=== PATIENT | male | born 1990 | race African-American/Black ===

== ENCOUNTER 2020-10-06 06:24 | Emergency (ER) | payer MEDICAID, OTHER ==
--- OUTSIDE RECORDS SUMMARY | 2020-10-06 06:50 | EXTERNAL MEDICAL SUMMARY RPT | Continuity of Care Document ---
:1990 Demographics Phone Unavailable Preferred Language Unknown Marital Status Unknown Holiness Affiliation Unknown Race Unknown Ethnic Group Unknown Author Organization [facility] Address [address] [id number] Phone Social History date description facility [phone]
[2020-10-06] MEDS ORDERED: METOPROLOL TARTRATE 50 MG TABLET PO STA (07:25)
[2020-10-06] MEDS ORDERED: ASPIRIN CHEW 81 MG TABLET PO STA (07:30)
--- NOTE | 2020-10-06 07:30 | ED Physician Documentation ---
PD HPI CHEST PAIN - Stated complaint Stated Complaint: CHEST PRESSURE/SOA - Chief complaint Chief Complaint: Cardiac - History obtained from History obtained from: Patient - Additional information Additional information: Patient comes emergency department chief complaint of episodes of chest pressure on and off for the last several months. Patient states that he first noticed it after sexual intercourse in June. He states that for about 10 minutes afterward, and he felt like he still need to catch his breath, and he had a sense of pressure substernally for about 20 minutes. He noticed that his heart seemed to be pounding afterward, as well. Patient states that since then he has had a number of other episodes of just the pressure, though he does notice that he seems to be winded after intercourse for up to 10 minutes on a fairly regular basis. Patient states he has not noticed any decrease in exercise tolerance in any other way, however. He states that he does generally work out regularly at the gym, though he has not been doing it very much this month so far. He also takes his dog for a walk for about a mile on a daily basis, and this does not cause him to be short of breath, either. Patient also does not notice any chest discomfort at this time. Patient states that the chest pressure will last anywhere from a few seconds to several minutes. He states that often, he can take a deep breath and it does help with the pressure felt better. Patient denies any swelling in his legs. No pain or enlargement of either of his calves. No fever chills or cough. The patient states that he was found to have high blood pressure measurements when he was in the [employer] some years ago, but they never started him on any medications. The [facility], but is in the process of getting set up with a primary care physician. He is not sure what his blood pressure normally runs. Patient denies any personal or family history of coronary artery disease at a young age or of DVT. He smokes tobacco approximately once a month and vapes in between, though he states he has not vape in the last few days. He drinks alcohol recreationally on the weekends. Patient states he eats mostly chicken as far as meat, and overall tries to live a healthy lifestyle. No other complaints at this time. Review of Systems Ten Systems: 10 systems reviewed and negative Constitutional: reports: Reviewed and negative Eyes: reports: Reviewed and negative Ears: reports: Reviewed and negative Nose: reports: Reviewed and negative Throat: reports: Reviewed and negative Cardiac: reports: Chest pain / pressure Respiratory: reports: Dyspnea GI: reports: Reviewed and negative : reports: Reviewed and negative Skin: reports: Reviewed and negative Musculoskeletal: reports: Reviewed and negative Neurologic: reports: Reviewed and negative Psychiatric: reports: Reviewed and negative Endocrine: reports: Reviewed and negative Immunocompromised: reports: Reviewed and negative PD PAST MEDICAL HISTORY - Past Medical History Past Medical History: No - Past Surgical History Past Surgical History: No - Present Medications Home Medications: Ambulatory Orders Medication Instructions Recorded Confirmed Metoprolol Tartrate [Lopressor] 12.5 mg PO BID #60 tablet 10/06/20 - Allergies Allergies/Adverse Reactions: Allergies Allergy/AdvReac Type Severity Reaction Status Date / Time No Known Drug Allergies Allergy Verified 10/06/20 06:42 - Social History Does the pt smoke?: No Smoking Status: Never smoker Does the pt drink ETOH?: Yes Does the pt have substance abuse?: No - Immunizations Immunizations are current?: No - POLST Patient has POLST: No PD ED PE NORMAL - Vitals Vital signs reviewed: Yes - General General: Alert and oriented X 3, No acute distress - HEENT HEENT: Atraumatic, PERRL, EOMI, Moist mucous membranes - Neck Neck: Supple, no meningeal sign - Cardiac Cardiac: RRR, No murmur, Strong equal pulses - Respiratory Respiratory: No respiratory distress, Clear bilaterally - Abdomen Abdomen: Soft, Non tender, Non distended - Derm Derm: Normal color, Warm and dry, No rash - Extremities Extremities: No deformity, No edema, No calf tenderness / cord - Neuro Neuro: Alert and oriented X 3, 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, Normal speech, Other (Grossly intact.) - Psych Psych: Normal mood, Normal affect Results - Vitals Vitals: Vital Signs - 24 hr 10/06/20 10/06/20 06:42 06:47 Temperature 36.7 C 36.7 C Heart Rate 79 79 Respiratory 15 15 Rate Blood Pressure 154/98 H 154/98 H O2 Saturation 100 100 Oxygen O2 Source Room air - EKG (time done) 0628 Rate: Rate (enter#) (63) Rhythm: NSR [place]: Normal Intervals: Normal DC QRS: Normal Ischemia: Normal ST segments, Non specific changes Compare to prior EKG: Old EKG unavailable Computer interpretation: Agree with computer - Labs Labs: Laboratory Tests 10/06/20 10/06/20 10/06/20 07:58 07:58 07:58 WBC 5.9 RBC 4.64 L Hgb 14.1 Hct 42.4 MCV 91.4 MCH 30.4 MCHC 33.3 RDW 12.9 Plt Count 269 MPV 9.7 Neut # (Auto) 2.0 Lymph # (Auto) 3.0 [place] # (Auto) 0.6 Eos # (Auto) 0.3 Baso # (Auto) 0.1 Absolute Nucleated RBC 0.00 Nucleated RBC % 0.0 Sodium 139 Potassium 3.8 Chloride 101 Carbon Dioxide 27 Anion Gap 11.0 BUN 19 Creatinine 1.0 Estimated GFR (MDRD) 107 Glucose 95 Calcium 9.2 Total Bilirubin 0.8 AST 24 ALT 17 Alkaline Phosphatase 50 Troponin I High Sens 6.3 Total Protein 7.6 Albumin 4.4 Globulin 3.2 Albumin/Globulin Ratio 1.4 Lipase 33 - Rads (name of study) CXR Radiology: Final report received, EMP read indepedently, See rad report (neg) PD MEDICAL DECISION MAKING - ED course Complexity details: reviewed results, re-evaluated patient, considered differential, d/w patient ED course: The patient was worked up with labs, EKG, and chest x-ray, all of which were unremarkable. He was without chest pain in the emergency department, But his blood pressure was found to be elevated. This started out quite significantly elevated, and did slowly come down in the emergency department, but patient systolic blood pressures remained around a minimum of 140. The patient had possibly had high blood pressure before, and I discussed with him that it is really important to keep better control of this. I started him on metoprolol here in the emergency department, at a low dose. I discussed with him that probably the best plan, since he does not have an actual primary care physician, but has access to primary care through the [facility], is to start him on a low dose of an antihypertensive and have him follow-up as soon as possible with primary care to determine a good long-term plan for his blood pressure. He has been given a dose of metoprolol today to this and. I have also discussed with him that it may be good to discuss having both Holter monitoring and a stress test done to further evaluate his symptoms. Overall, he is low risk because of his age, but the dyspnea after intercourse is concerning. However, he has not been having this with other forms of exercise, so it is unclear what is causing this finding. Patient at this point in time is deemed stable for discharge home. We have discussed the usual indications for return. Departure - Departure Disposition: 01 Home, Self Care Clinical Impression: Chest pain Qualifiers: Chest pain type: unspecified Qualified Code(s): R07.9 - Chest pain, unspecified Hypertension Qualifiers: Hypertension type: essential hypertension Qualified Code(s): I10 - Essential (primary) hypertension Condition: Stable Instructions: ED Chest Pain Atypical Unkn Cause, ED Hypertension New Begin Tx Prescriptions: Metoprolol Tartrate [Lopressor] 12.5 mg PO BID #60 tablet Comments: Your labs, chest x-ray, and EKG all look good. There is no evidence of an emergent cause of your symptoms today. As we have discussed, you are young and because of this very low risk for coronary artery disease, the condition that leads to heart attack. However, given that you are having some shortness of breath in certain situations, as well as the chest pressure, plus the ongoing elevated blood pressure, it is important for you to follow-up with your primary doctor to discuss better control of your blood pressure, as well as the possibility of having a stress test done. We have started you on a blood press ure medicine today, which she should take every day as directed. If you are able, please try to check your blood pressure on a fairly regular basis, at least several times a week. Is most helpful if you keep a record of your blood pressure readings So that when your doctor sees you, they can get a sense of how well the medicine is controlling your blood pressure, and what you were running on a daily basis. Please continue to try to optimize lifestyle factors, including getting cardiovascular exercise at least several times a week, eating at least 2 servings of fruits and/or vegetables at each meal, getting to bed early, and leaving off use of alcohol and cigarettes/vaping. It should be safe for you to travel to [place] tomorrow. However, if it anytime you develop severe chest pain, especially is if it is associated with shortness of breath, facial sweating, lightheadedness, and/or nausea, please seek medical attention immediately.
[2020-10-06 08:00] LABS: BASOPHILS # (AUTO) 0.1 10^3/uL (0.0-0.1); BASOPHILS % (AUTO) 0.8 %; EOSINOPHILS # (AUTO) 0.3 10^3/uL (0.0-0.7); EOSINOPHILS % (AUTO) 5.4 %; HCT - HEMATOCRIT 42.4 % (42.0-52.0); HGB - HEMOGLOBIN 14.1 g/dL (14.0-18.0); LYMPHOCYTES % (AUTO) 50.8 %; MEAN CORPUSCULAR HEMOGLOBIN 30.4 pg (27.0-31.0); MEAN CORPUSCULAR HGB CONC 33.3 g/dL (32.0-36.0); MEAN CORPUSCULAR VOLUME 91.4 fL (80.0-94.0); MEAN PLATELET VOLUME 9.7 fL (7.4-11.4); MONOCYTES # (AUTO) 0.6 10^3/uL (0.0-1.0); MONOCYTES % (AUTO) 9.3 %; NEUTROPHILS % (AUTO) 33.7 %; PLT - PLATELET COUNT 269 10^3/uL (130-450); RED BLOOD COUNT 4.64 10^6/uL (4.70-6.10); RED CELL DISTRIBUTION WIDTH 12.9 % (12.0-15.0); WHITE BLOOD COUNT 5.9 x10^3/uL (4.8-10.8)
[2020-10-06 08:16] LABS: ALBUMIN 4.4 g/dL (3.2-5.5); ALBUMIN/GLOBULIN RATIO 1.4 (1.0-2.2); BILIRUBIN,TOTAL 0.8 mg/dL (0.2-1.0); CALCIUM 9.2 mg/dL (8.5-10.3); POTASSIUM 3.8 mmol/L (3.5-5.0); TOTAL PROTEIN 7.6 g/dL (6.7-8.2)
--- NOTE | 2020-10-06 08:23 | XRAY Report ---
PROCEDURE: Chest 1 View X-Ray INDICATIONS: chest pain TECHNIQUE: One view of the chest was acquired. COMPARISON: None FINDINGS: Surgical changes and devices: None. Lungs and pleura: No pleural effusions or pneumothorax. Lungs are clear. Mediastinum: Mediastinal contours appear normal. Heart size is normal. Bones and chest wall: No suspicious bony lesions. Overlying soft tissues appear unremarkable. IMPRESSION: No acute disease. Reviewed by: Keo Goldberg MD on 10/06/2020 8:22 AM PDT Approved by: Keo Goldberg MD on 10/06/2020 8:22 AM PDT Station ID: [id number]
[2020-10-06 09:25] VITALS: BP 139/104
== END 2020-10-06 09:00 | disposition home or self-care (01) ==
LOC: ED 06:24
DX: R07.89 Other chest pain (principal); I10 Essential (primary) hypertension; F17.290 Nicotine dependence, other tobacco product, uncomplicated
CPT/HCPCS: 36415; 71045; 80053; 83690; 84484; 85025; 85379; 93005; 99284; A9270

== ENCOUNTER 2021-11-01 20:41 | Emergency (ER) | payer OTHER ==
--- NOTE | 2021-11-01 21:21 | ED Physician Documentation ---
History of Present Illness - Stated complaint Stated Complaint: HEADACHE - Chief complaint Chief Complaint: Cardiac - History obtained from History obtained from: Patient - Additonal information Additional information: Patient is a 31-year-old male with a history of hypertension presenting for evaluation of a left-sided headache that has been present for 3-1/2 weeks. Patient hasNoted that the headache is worse when he first wakes up. 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 It is a throbbing pain. It does improve with ibuprofen or Tylenol but then returns. He reports he has had a headache every day for the last 3-1/2 weeks. He denies any associated nausea, blurred vision, weakness, chest pain or difficulty breathing.There is no change in the headache that prompted today's evaluation other than the duration of How long he has experienced it.He does report a history of elevated blood pressures while he was in the [employer] but was not previously started on any medications. [facility] and the plan was for him to keep a log of his blood pressure readings and they are to schedule a phone call in the next 1 to 2 weeks to review them. He is not currently taking any medications for his blood pressure.He denies any trauma or injury. He denies exertion at onset of headache. He denies any activity that makes the headache worse. Review of Systems Constitutional: denies: Fever Eyes: denies: Decreased vision, Photophobia Ears: denies: Ear pain Nose: denies: Congestion Throat: denies: Sore throat Cardiac: denies: Chest pain / pressure Respiratory: denies: Dyspnea, Cough GI: denies: Abdominal Pain, Vomiting Skin: denies: Rash Musculoskeletal: denies: Back pain Neurologic: reports: Headache. denies: Syncope, Head injury PD PAST MEDICAL HISTORY - Past Medical History Past Medical History: Yes - Past Surgical History Past Surgical History: No - Present Medications Home Medications: Ambulatory Orders Medication Instructions Recorded Confirmed Metoprolol Tartrate [Lopressor] 12.5 mg PO BID #60 tablet 10/06/20 amLODIPine [Norvasc] 5 mg PO DAILY #30 tablet 11/01/21 - Allergies Allergies/Adverse Reactions: Allergies Allergy/AdvReac Type Severity Reaction Status Date / Time No Known Drug Allergies Allergy Verified 11/01/21 20:50 - Social History Does the pt smoke?: No Smoking Status: Never smoker Does the pt drink ETOH?: Yes Does the pt have substance abuse?: No - Immunizations Immunizations are current?: No - POLST Patient has POLST: No PD ED PE NORMAL - General General: Alert and oriented X 3, No acute distress, Well developed/nourished - HEENT HEENT: Atraumatic, PERRL, EOMI, Moist mucous membranes, Pharynx benign, Other (No tenderness over temporal arteries) - Neck Neck: Supple, no meningeal sign, No bony TTP - Cardiac Cardiac: RRR, No murmur, Strong equal pulses - Respiratory Respiratory: No respiratory distress, Clear bilaterally - Abdomen Abdomen: Normal bowel sounds, Soft, Non tender - Derm Derm: Warm and dry - Extremities Extremities: No edema - Neuro Neuro: Alert and oriented X 3, 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, No motor deficit, No sensory deficit, Normal speech Eye Opening: Spontaneous Motor: Obeys Commands Verbal: Oriented GCS Score: 15 - Psych Psych: Normal mood Results - Vitals Vitals: Vital Signs - 24 hr 11/01/21 11/01/21 11/01/21 20:45 20:50 21:20 Temperature 36.4 C L 36.5 C Heart Rate 70 70 68 Respiratory 17 17 16 Rate Blood Pressure 207/119 H 207/119 H 198/120 H O2 Saturation 100 100 100 11/01/21 11/01/21 11/01/21 21:30 22:00 22:30 Temperature Heart Rate 73 62 64 Respiratory 16 12 12 Rate Blood Pressure 185/113 H 180/100 H 180/110 H O2 Saturation 100 98 98 11/01/21 23:00 Temperature Heart Rate 61 Respiratory 18 Rate Blood Pressure 197/122 H O2 Saturation 100 Oxygen O2 Source Room air - Labs Labs: Laboratory Tests 11/01/21 11/01/21 21:27 22:22 WBC 5.0 RBC 3.81 L Hgb 11.8 L Hct 34.2 L MCV 89.8 MCH 31.0 MCHC 34.5 RDW 14.6 Plt Count 112 L Neut # (Auto) 2.5 Lymph # (Auto) 1.6 [place] # (Auto) 0.6 Eos # (Auto) 0.2 Baso # (Auto) 0.0 Absolute Nucleated RBC 0.00 Nucleated RBC % 0.0 Sodium 138 Potassium 4.0 Chloride 104 Carbon Dioxide 23 Anion Gap 11.0 BUN 27 H Creatinine 1.8 H Estimated GFR (MDRD) 54 L Glucose 90 Calcium 9.3 Total Bilirubin 2.8 H AST 24 ALT 16 Alkaline Phosphatase 44 Total Protein 7.7 Albumin 4.3 Globulin 3.4 Albumin/Globulin Ratio 1.3 PD MEDICAL DECISION MAKING - ED course Complexity details: reviewed results, re-evaluated patient, d/w patient ED course: Patient is a 31-year-old male with headache and hypertension. His neurologic exam is normal.CT was obtained to rule out intracranial bleed and is negative. I do not suspect subarachnoid hemorrhage based on his history and exam. Patient did have improvement in his headache with Toradol and fluids. Labs were reviewed and show a mild BRANDY.Patient's blood pressure remained elevated. He had previously taken medication but is [facility]. I do believe he should be on an antihypertensive and he is agreeable to starting medication tonight. Patient is essentially asymptomatic and does not warrant rapid lowering of his blood pressure tonight. He is aware of need for close follow-up with his primary care doctor for reevaluation of his blood pressure. He is also advised on strict return precautions. Departure - Departure Disposition: Home, Self Care Clinical Impression: Uncontrolled hypertension Headache Qualifiers: Headache type: tension-type Headache chronicity pattern: acute headache Intractability: not intractable Qualified Code(s): G44.209 - Tension-type headache, unspecified, not intractable Condition: Stable Instructions: ED Headache Tension, ED Hypertension New Begin Tx Prescriptions: amLODIPine [Norvasc] 5 mg PO DAILY #30 tablet Comments: Thuan - You were evaluated for a headache and high blood pressure. Your head CT did not show any abnormalities.Your blood test showed that your kidney function has declined since your last check a year ago. This could be from hydration or effects from your high blood pressure. As your blood pressure readings have been consistently elevated Here and it also sounds like they have been in the past, I think we should start you on medication to help. I will start you on amlodipine. I will start you on a low dose and send a prescription to [facility] in [place]. [facility] for a [facility]up appointment to see how you are tolerating this medication and also for recheck of your kidneys. If anytime it seems that your headache has worsened or you develop any new symptoms such as chest pain or trouble breathing please return to the emergency department. Discharge Date/Time: 11/01/21 23:29
[2021-11-01 21:57] LABS: ALBUMIN 4.3 g/dL (3.2-5.5); ALBUMIN/GLOBULIN RATIO 1.3 (1.0-2.2); BILIRUBIN,TOTAL 2.8 mg/dL (0.2-1.0); CALCIUM 9.3 mg/dL (8.5-10.3); CREATININE 1.8 mg/dL (0.6-1.2); TOTAL PROTEIN 7.7 g/dL (6.7-8.2)
[2021-11-01] MEDS ORDERED: KETOROLAC 30 MG/ML VIAL IVP STA (22:08)
[2021-11-01] MEDS ORDERED: SODIUM CHLORIDE 0.9% 1,000 ML IV STA (22:08)
[2021-11-01 22:29] LABS: BASOPHILS % (AUTO) 0.8 %; EOSINOPHILS # (AUTO) 0.2 10^3/uL (0.0-0.7); HCT - HEMATOCRIT 34.2 % (42.0-52.0); HGB - HEMOGLOBIN 11.8 g/dL (14.0-18.0); LYMPHOCYTES # (AUTO) 1.6 10^3/uL (1.5-3.5); LYMPHOCYTES % (AUTO) 31.9 %; MEAN CORPUSCULAR HGB CONC 34.5 g/dL (32.0-36.0); MEAN CORPUSCULAR VOLUME 89.8 fL (80.0-94.0); MONOCYTES # (AUTO) 0.6 10^3/uL (0.0-1.0); MONOCYTES % (AUTO) 12.1 %; NEUTROPHILS # (AUTO) 2.5 10^3/uL (1.5-6.6); NEUTROPHILS % (AUTO) 50.8 %; PLT - PLATELET COUNT 112 10^3/uL (130-450); RED BLOOD COUNT 3.81 10^6/uL (4.70-6.10); RED CELL DISTRIBUTION WIDTH 14.6 % (12.0-15.0)
--- NOTE | 2021-11-01 22:46 | CT Report ---
PROCEDURE: HEAD WO INDICATIONS: headache/HTN TECHNIQUE: Noncontrast 5 mm thick angled axial sections acquired from the foramen magnum to the vertex. For rad iation dose reduction, the following was used: automated exposure control, adjustment of mA and/or k V according to patient size. COMPARISON: None. FINDINGS: Image quality: Excellent. CSF spaces: Basal cisterns are patent. No extra-axial fluid collections. Ventricles are normal in size and shape. Brain: No intracranial hemorrhage, mass, or mass effect. Russo-white matter interface appears preser sha. Skull and face: Calvarium and visualized facial bones are intact, without suspicious lesions. Sinuses: Visualized sinuses and mastoids are clear. IMPRESSION: 1. No acute intracranial abnormality. Reviewed by: Ben Chavez MD on 11/01/2021 10:45 PM PDT Approved by: Ben Chavez MD on 11/01/2021 10:45 PM PDT Station ID: [id number]
[2021-11-01 23:02] VITALS: BP 197/122
[2021-11-01] MEDS ORDERED: amLODIPine 5 MG TABLET PO STA (23:03)
== END 2021-11-01 23:29 | disposition home or self-care (01) ==
LOC: ED 20:41
DX: G44.209 Tension-type headache, unspecified, not intractable (principal); I10 Essential (primary) hypertension
CPT/HCPCS: 36415; 70450; 80053; 85025; 96374; 99284; A9270

== ENCOUNTER 2021-11-06 06:06 | Emergency (ER) | payer OTHER ==
[2021-11-06] MEDS ORDERED: KETOROLAC 30 MG/ML VIAL IM STA (07:59)
--- NOTE | 2021-11-06 08:00 | ED Physician Documentation ---
PD HPI HEADACHE - Stated complaint Stated Complaint: HEADACHE - Chief complaint Chief Complaint: Neuro - History obtained from History obtained from: Patient - History of Present Illness Timing - onset during: Rest Timing - duration: Months Timing - details: Gradual onset, Still present, Waxing and waning Quality: Throbbing Associated symptoms: No: Fever, Stiff neck, Nausea, Vomiting, Weakness, Numbness, Syncope, Seizure, Eye pain, Vision changes Improved by: Rest, Dark room Worsened by: Light, Noise Contributing factors: Hypertension. No: Anticoagulated, Possible carbon monoxide Similar symptoms before: Diagnosis (hypertension) Review of Systems Constitutional: denies: Fever Eyes: denies: Decreased vision, Photophobia Ears: denies: Loss of hearing, Ear pain Nose: denies: Rhinorrhea / runny nose, Congestion Throat: denies: Sore throat Cardiac: denies: Chest pain / pressure, Palpitations Respiratory: denies: Dyspnea, Cough GI: denies: Abdominal Pain, Nausea, Vomiting, Constipation, Diarrhea : denies: Dysuria, Frequency Musculoskeletal: denies: Neck pain, Back pain, Extremity pain Neurologic: reports: Headache. denies: Generalized weakness, Focal weakness, Numbness, Head injury, LOC PD PAST MEDICAL HISTORY - Past Surgical History Past Surgical History: No - Present Medications Home Medications: Ambulatory Orders Medication Instructions Recorded Confirmed amLODIPine [Norvasc] 5 mg PO DAILY #30 tablet 11/01/21 11/06/21 Metoprolol Succinate [Toprol Xl] 50 mg PO DAILY #30 tablet 11/06/21 - Allergies Allergies/Adverse Reactions: Allergies Allergy/AdvReac Type Severity Reaction Status Date / Time No Known Drug Allergies Allergy Verified 11/01/21 20:50 - Social History Does the pt smoke?: No Smoking Status: Never smoker Does the pt drink ETOH?: Yes Does the pt have substance abuse?: No - Immunizations Immunizations are current?: No - POLST Patient has POLST: No PD ED PE NORMAL - Vitals Vital signs reviewed: Yes (marked hypertension systolic and diastolic ) - General General: Alert and oriented X 3, No acute distress, Well developed/nourished - HEENT HEENT: Atraumatic, PERRL, EOMI - Neck Neck: Supple, no meningeal sign, No bony TTP - Cardiac Cardiac: RRR, No murmur - Respiratory Respiratory: No respiratory distress, Clear bilaterally - Abdomen Abdomen: Normal bowel sounds, Soft, Non tender, Non distended, No organomegaly - Back Back: No CVA TTP, No spinal TTP - Derm Derm: Normal color, Warm and dry, No rash - Extremities Extremities: No deformity, No edema - Neuro Neuro: Alert and oriented X 3, 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, No motor deficit, No sensory deficit, Normal speech Eye Opening: Spontaneous Motor: Obeys Commands Verbal: Oriented GCS Score: 15 - Psych Psych: Normal mood, Normal affect Results - Vitals Vitals: Vital Signs - 24 hr 11/06/21 11/06/21 11/06/21 06:10 06:44 07:08 Temperature 36.8 C Heart Rate 69 65 62 Respiratory 20 13 Rate Blood Pressure 214/126 H 190/125 H O2 Saturation 99 100 11/06/21 11/06/21 11/06/21 09:11 11:19 13:16 Temperature 36.5 C Heart Rate 61 68 70 Respiratory 17 14 13 Rate Blood Pressure 174/129 H 167/119 H 166/122 H O2 Saturation 98 100 100 11/06/21 13:20 Temperature Heart Rate 67 Respiratory 18 Rate Blood Pressure 158/106 H O2 Saturation 99 Oxygen O2 Source Room air - Labs Labs: Laboratory Tests 11/06/21 11/06/21 11/06/21 06:47 06:47 06:47 WBC 9.2 RBC 3.89 L Hgb 12.1 L Hct 35.0 L MCV 90.0 MCH 31.1 H MCHC 34.6 RDW 14.5 Plt Count 144 MPV 11.5 H Neut # (Auto) 4.1 Lymph # (Auto) 3.6 H [place] # (Auto) 1.1 H Eos # (Auto) 0.4 Baso # (Auto) 0.1 Absolute Nucleated RBC 0.00 Nucleated RBC % 0.0 Sodium 135 Potassium 3.8 Chloride 99 L Carbon Dioxide 25 Anion Gap 11.0 BUN 34 H Creatinine 2.1 H Estimated GFR (MDRD) 45 L Glucose 97 Calcium 9.6 Total Bilirubin 2.6 H AST 28 ALT 16 Alkaline Phosphatase 45 Troponin I High Sens 23.0 H* Total Protein 8.4 H Albumin 4.6 Globulin 3.8 Albumin/Globulin Ratio 1.2 Lipase 44 Ethyl Alcohol < 5.0 11/06/21 10:20 WBC RBC Hgb Hct MCV MCH MCHC RDW Plt Count MPV Neut # (Auto) Lymph # (Auto) [place] # (Auto) Eos # (Auto) Baso # (Auto) Absolute Nucleated RBC Nucleated RBC % Sodium Potassium Chloride Carbon Dioxide Anion Gap BUN Creatinine Estimated GFR (MDRD) Glucose Calcium Total Bilirubin AST ALT Alkaline Phosphatase Troponin I High Sens 17.0 Total Protein Albumin Globulin Albumin/Globulin Ratio Lipase Ethyl Alcohol PD MEDICAL DECISION MAKING - ED course Complexity details: reviewed old records, reviewed results, re-evaluated patient, considered differential, d/w patient ED course: 31-year-old Thuan Nguyen has a history of hypertension and he has hypertension [id number] today as well as a headache associated. He has enough hypertension that he has had a small nudge in his troponin. He is treated here in the emergency department with oral metoprolol initially when this gives inadequate results he is subsequently administered labetalol with some improvement. We will place the patient on 250 mg of metoprolol succinate daily and have him follow-up with his prior primary he will continue the amlodipine as well. Departure - Departure Disposition: 01 Home, Self Care Clinical Impression: Uncontrolled hypertension Condition: Stable Instructions: ED Hypertension Conf Out Of Control Follow-Up: ESTEE BASILIO ARNP [Primary Care Provider] - Prescriptions: Metoprolol Succinate [Toprol Xl] 50 mg PO DAILY #30 tablet Comments: Thuan, Today your blood pressure is markedly elevated and requires increased treatment. I have E scribed metoprolol succinate 50 mg daily to [facility] in [place]. My recommendation is to obtain this medication and begin it today. Follow-up with your primary for repeat evaluation in the coming week. Forms: Activity restrictions
[2021-11-06] MEDS ORDERED: METOPROLOL TARTRATE 50 MG TABLET PO STA (08:02)
[2021-11-06] MEDS ORDERED: KETOROLAC 15 MG/ML VIAL IVP STA (08:03)
[2021-11-06 08:13] LABS: BASOPHILS # (AUTO) 0.1 10^3/uL (0.0-0.1); BASOPHILS % (AUTO) 0.7 %; EOSINOPHILS # (AUTO) 0.4 10^3/uL (0.0-0.7); EOSINOPHILS % (AUTO) 3.8 %; HGB - HEMOGLOBIN 12.1 g/dL (14.0-18.0); LYMPHOCYTES # (AUTO) 3.6 10^3/uL (1.5-3.5); MEAN CORPUSCULAR HEMOGLOBIN 31.1 pg (27.0-31.0); MEAN CORPUSCULAR HGB CONC 34.6 g/dL (32.0-36.0); MEAN PLATELET VOLUME 11.5 fL (7.4-11.4); MONOCYTES # (AUTO) 1.1 10^3/uL (0.0-1.0); MONOCYTES % (AUTO) 11.6 %; NEUTROPHILS # (AUTO) 4.1 10^3/uL (1.5-6.6); NEUTROPHILS % (AUTO) 44.7 %; PLT - PLATELET COUNT 144 10^3/uL (130-450); RED BLOOD COUNT 3.89 10^6/uL (4.70-6.10); RED CELL DISTRIBUTION WIDTH 14.5 % (12.0-15.0); WHITE BLOOD COUNT 9.2 x10^3/uL (4.8-10.8)
[2021-11-06 09:03] LABS: ALBUMIN 4.6 g/dL (3.2-5.5); ALBUMIN/GLOBULIN RATIO 1.2 (1.0-2.2); ALKALINE PHOSPHATASE 45 IU/L (42-121); ALT ALANINE AMINOTRANSFERASE 16 IU/L (10-60); AST ASPARTATE AMINOTRANSFERASE 28 IU/L (10-42); BILIRUBIN,TOTAL 2.6 mg/dL (0.2-1.0); BUN - BLOOD UREA NITROGEN 34 mg/dL (6-20); CALCIUM 9.6 mg/dL (8.5-10.3); CARBON DIOXIDE - CO2 25 mmol/L (21-32); CHLORIDE 99 mmol/L (101-111); CREATININE 2.1 mg/dL (0.6-1.2); ETOH - ETHANOL < 5.0 mg/dL; GFR - MDRD 45 (>89); GLUCOSE 97 mg/dL (70-100); LIPASE 44 U/L (22-51); POTASSIUM 3.8 mmol/L (3.5-5.0); SODIUM 135 mmol/L (135-145); TOTAL PROTEIN 8.4 g/dL (6.7-8.2)
[2021-11-06] MEDS ORDERED: LABETALOL 20 MG/4 ML SYRINGE IVP STA (12:34)
[2021-11-06 13:20] VITALS: BP 158/106
== END 2021-11-06 14:01 | disposition home or self-care (01) ==
LOC: ED 06:06
DX: I10 Essential (primary) hypertension (principal)
CPT/HCPCS: 36415; 80053; 80320; 83690; 84484; 85025; 93005; 96374; 96375; 99283; 99284; A9270

== ENCOUNTER 2022-02-22 14:28 | Emergency (ER) | payer OTHER ==
[2022-02-22 14:37] VITALS: BP 165/100
--- NOTE | 2022-02-22 15:29 | ED Physician Documentation ---
History of Present Illness - Stated complaint Stated Complaint: PORT BLEEDING - Chief complaint Chief Complaint: General - History obtained from History obtained from: Patient - History of Present Illness Timing: Today Pain level max: 0 Pain level now: 0 - Additonal information Additional information: Patient has a Rain port in the right upper chest. He uses this for dialysis. Is scheduled to be removed next week. He states that today he noticed blood on the dressing. Nothing makes it better or worse. Patient is asymptomatic. No fevers. No chills. No skin changes. Review of Systems Constitutional: denies: Fever, Chills Respiratory: denies: Cough GI: denies: Nausea, Vomiting, Diarrhea Skin: denies: Rash Musculoskeletal: denies: Neck pain, Back pain Neurologic: denies: Headache PD PAST MEDICAL HISTORY - Past Medical History Past Medical History: Yes Cardiovascular: Hypertension - Past Surgical History Past Surgical History: No - Present Medications Home Medications: Ambulatory Orders Medication Instructions Recorded Confirmed amLODIPine [Norvasc] 5 mg PO DAILY #30 tablet 11/01/21 11/06/21 Metoprolol Succinate [Toprol Xl] 50 mg PO DAILY #30 tablet 11/06/21 - Allergies Allergies/Adverse Reactions: Allergies Allergy/AdvReac Type Severity Reaction Status Date / Time No Known Drug Allergies Allergy Verified 02/22/22 14:37 - Social History Does the pt smoke?: No Smoking Status: Never smoker Does the pt drink ETOH?: Yes Does the pt have substance abuse?: No - Immunizations Immunizations are current?: No - POLST Patient has POLST: No PD ED PE NORMAL - Vitals Vital signs reviewed: Yes - General General: Alert and oriented X 3, No acute distress - HEENT HEENT: Moist mucous membranes - Derm Derm: Warm and dry - Neuro Neuro: Alert and oriented X 3 - Psych Psych: Normal mood, Normal affect - Free text exam Free text exam: Port in place in the right upper chest. There is no further bleeding. There is blood in one of the ports. Results - Vitals Vitals: Vital Signs - 24 hr 02/22/22 14:33 Temperature 36.5 C Heart Rate 66 Respiratory 14 Rate Blood Pressure 165/100 H O2 Saturation 97 Oxygen O2 Source Room air PD MEDICAL DECISION MAKING - ED course Complexity details: considered differential, d/w patient ED course: No active bleeding in the emergency department. The port was flushed with heparin flush. The bandages were changed. Patient counseled regarding signs and symptoms for which I believe and urgent re-evaluation would be necessary. Patient with good understanding of and agreement to plan and is comfortable going home at this time This document was made in part using voice recognition software. While efforts are made to proofread this document, sound alike and grammatical errors may occu r. Departure - Departure Disposition: 01 Home, Self Care Clinical Impression: Port-A-Cath in place Condition: Good Instructions: ED PICC Line Care Follow-Up: your,doctor as needed [Other] Comments: Your report was flushed with heparin. Your dressing was changed. Please return if you worsen. Discharge Date/Time: 02/22/22 15:40
== END 2022-02-22 15:40 | disposition home or self-care (01) ==
LOC: ED 14:28
DX: Z48.01 Encounter for change or removal of surgical wound dressing (principal)
CPT/HCPCS: 99281; 99282

== ENCOUNTER 2022-03-19 11:07 | Emergency (ER) | payer OTHER ==
[2022-03-19] MEDS ORDERED: LABETALOL 20 MG/4 ML SYRINGE IVP STA ×2 (11:34→12:10)
[2022-03-19] MEDS ORDERED: SODIUM CHLORIDE 0.9% 1,000 ML IV STA (11:34)
--- NOTE | 2022-03-19 11:38 | ED Physician Documentation ---
History of Present Illness - Stated complaint Stated Complaint: HIGH BP - Chief complaint Chief Complaint: Cardiac - Additonal information Additional information: 32-year-old male presents emergency department for evaluation of nausea, vomiti ng increasing weakness and elevated blood pressures. 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 Patient has been managed by the [facility] seismic prospecting observer helper Dr. Kaminski. He was receiving dialysis from mid November through january. He has also been receiving monoclonal antibody infusions every 2 weeks. His last infusion March 09. Over the last year he has been diagnosed with hypertension and is currently managed on amlodipine 10 mg daily, chlorthalidone 25 mg daily and carvedilol 12.5 mg twice daily. I have been able to review the patient's most recent [facility] labs and it appears that his baseline creatinine is about 5.7 and a hgb of 10.4 Non-smoker. No headache. He does have some mild chest pressure. No leg swelling. continues to make urine adequately. Review of Systems Constitutional: reports: Reviewed and negative Eyes: reports: Reviewed and negative Cardiac: reports: Chest pain / pressure. denies: Palpitations, Pedal edema, Calf pain Respiratory: denies: Dyspnea, Cough, Hemoptysis GI: reports: Nausea, Vomiting. denies: Abdominal Pain : reports: Reviewed and negative Skin: reports: Reviewed and negative Musculoskeletal: reports: Reviewed and negative PD PAST MEDICAL HISTORY - Past Medical History Cardiovascular: Hypertension : Dialysis - Past Surgical History Past Surgical History: No - Present Medications Home Medications: Ambulatory Orders Medication Instructions Recorded Confirmed Chlorthalidone 12.5 mg PO DAILY 03/19/22 03/19/22 amLODIPine [Norvasc] 12.5 mg PO DAILY 03/19/22 03/19/22 carvediloL [Coreg] 12.5 mg PO BID 03/19/22 03/19/22 - Allergies Allergies/Adverse Reactions: Allergies Allergy/AdvReac Type Severity Reaction Status Date / Time No Known Drug Allergies Allergy Verified 02/22/22 14:37 - Social History Does the pt smoke?: No Smoking Status: Never smoker Does the pt drink ETOH?: Yes Does the pt have substance abuse?: No - Immunizations Immunizations are current?: No - POLST Patient has POLST: No PD ED PE NORMAL - General General: Alert and oriented X 3, No acute distress - HEENT HEENT: PERRL - Neck Neck: Supple, no meningeal sign, No adenopathy - Cardiac Cardiac: RRR, No murmur, No gallop - Respiratory Respiratory: No respiratory distress, Clear bilaterally - Abdomen Abdomen: Normal bowel sounds, Soft, Non tender - Back Back: No CVA TTP, No spinal TTP - Derm Derm: Normal color, Warm and dry, No rash - Extremities Extremities: No deformity, No tenderness to palpate, Normal ROM s pain - Neuro Neuro: Alert and oriented X 3, oracle apex developer 2-12 intact Eye Opening: Spontaneous Motor: Obeys Commands Verbal: Oriented GCS Score: 15 Results - Vitals Vitals: Vital Signs - 24 hr 03/19/22 03/19/22 03/19/22 11:16 11:44 12:09 Temperature 36.9 C Heart Rate 67 73 64 Respiratory 18 15 12 Rate Blood Pressure 237/126 H 225/130 H 199/131 H O2 Saturation 100 96 100 03/19/22 03/19/22 03/19/22 12:30 13:30 14:00 Temperature Heart Rate 70 69 74 Respiratory 26 H 17 17 Rate Blood Pressure 203/122 H 168/109 H 141/98 H O2 Saturation 100 100 94 03/19/22 03/19/22 03/19/22 14:30 15:00 15:30 Temperature Heart Rate 75 69 80 Respiratory 16 20 18 Rate Blood Pressure 165/108 H 181/123 H 168/114 H O2 Saturation 99 100 100 03/19/22 16:00 Temperature Heart Rate 79 Respiratory 12 Rate Blood Pressure 173/87 H O2 Saturation 99 Oxygen O2 Source Room air - EKG (time done) 1126 Rate: Rate (enter#) (66) Rhythm: NSR Edwards: Normal Intervals: Normal NV QRS: Normal Ischemia: Non specific changes Compare to prior EKG: Old EKG unavailable Computer interpretation: Agree with computer - Labs Labs: Laboratory Tests 03/19/22 03/19/22 03/19/22 11:42 11:42 11:42 WBC 5.5 RBC 3.49 L Hgb 10.6 L Hct 31.9 L MCV 91.4 MCH 30.4 MCHC 33.2 RDW 16.2 H Plt Count 115 L MPV 10.3 Neut # (Auto) 3.3 Lymph # (Auto) 1.4 L [place] # (Auto) 0.6 Eos # (Auto) 0.2 Baso # (Auto) 0.0 Absolute Nucleated RBC 0.00 Nucleated RBC % 0.0 Sodium 138 Potassium 4.2 Chloride 104 Carbon Dioxide 21 Anion Gap 13.0 BUN 69 H Creatinine 10.1 H* Estimated GFR (MDRD) 7 L Glucose 90 Calcium 9.8 Total Bilirubin 2.8 H AST 25 ALT 15 Alkaline Phosphatase 56 Lactate Dehydrogenase Troponin I High Sens 82.0 H* Total Protein 7.7 Albumin 4.3 Globulin 3.4 Albumin/Globulin Ratio 1.3 Lipase 30 Urine Color Urine Clarity Urine pH Ur Specific [place] Urine Protein Urine Glucose (UA) Urine Ketones Urine Occult Blood Urine Nitrite Urine Bilirubin Urine Urobilinogen Ur Leukocyte Esterase Urine RBC Urine WBC Ur Squamous Epith Cells Urine Bacteria Urine Casts Ur Microscopic Review Urine Culture Comments SARS-CoV-2 (PCR) 03/19/22 03/19/22 03/19/22 11:42 12:48 13:23 WBC RBC Hgb Hct MCV MCH MCHC RDW Plt Count MPV Neut # (Auto) Lymph # (Auto) [place] # (Auto) Eos # (Auto) Baso # (Auto) Absolute Nucleated RBC Nucleated RBC % Sodium Potassium Chloride Carbon Dioxide Anion Gap BUN Creatinine Estimated GFR (MDRD) Glucose Calcium Total Bilirubin AST ALT Alkaline Phosphatase Lactate Dehydrogenase 517 H Troponin I High Sens Total Protein Albumin Globulin Albumin/Globulin Ratio Lipase Urine Color YELLOW Urine Clarity CLEAR Urine pH 6.0 Ur Specific [place] 1.025 Urine Protein >=300 H Urine Glucose (UA) NEGATIVE Urine Ketones TRACE Urine Occult Blood LARGE H Urine Nitrite NEGATIVE Urine Bilirubin NEGATIVE Urine Urobilinogen 0.2 (NORMAL) Ur Leukocyte Esterase NEGATIVE Urine RBC 0-5 Urine WBC 0-3 Ur Squamous Epith Cells RARE Squamous Urine Bacteria Few Urine Casts 0-2 Course Granular Ur Microscopic Review INDICATED Urine Culture Comments NOT INDICATED SARS-CoV-2 (PCR) NOT DETECTED - Rads (name of study) cxr Radiology: Final report received (No acute cardiopulmonary pathology) PD MEDICAL DECISION MAKING - ED course Complexity details: reviewed results, re-evaluated patient, considered differential, d/w patient, d/w diet consultant (Gordy) ED course: 32-year-old male presents emergency department for evaluation of elevated blood pressures, generalized weakness nausea and vomiting. 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 He also receives monoclonal antibody infusions every 2 weeks. He is followed closely by [facility] nephrology Dr. Kaminski On presentation to the emergency department the patient is alert and well- appearing. However his initial systolic blood pressures are approximately 240/130. He is denying any chest pain or shortness of air. There is no hypoxia. Initially the patient was given 2 doses of labetalol without therapeutic relief of the hypertension and a nicardipine infusion was initiated. Our goal systolic blood pressure is approximately 180. CBC reveals a mild anemia though essentially unchanged from the [facility]'s most recent labs. Unfortunately he does have worsening renal function with a BUN of 70 and a creatinine of 10. Given the lack of nephrology and dialysis services at [facility] that he would not be able to be admitted here therefore [facility] 1245: I have discussed this case with Dr. Kaminski she agrees with the initiation of the nicardipine infusion. She is both the patient's seismic prospecting observer helper as well as the ICU attending at the [facility] today therefore she is going to attempt to make an ICU bed available for him at the [facility] in [place]. 1400: Patient has been accepted to [facility] officially. Accepting physician Dr. Kaminski. [facility] is arranging for [facility] transport. Appropriate COBRA paperwork completed. We continue to titrate the nicardipine drip for goal systolic blood pressure of approximately 180. - Critical Care Time(min): 30 Time Includes: Direct patient care, Review records, Medical consult, See mercyes s note (Severely elevated blood pressure in the setting of worsening kidney injury and the initiation of infusions for blood pressure control) Data interpretation: Labs Departure - Departure Disposition: 02 Transfer Acute Care Hosp Clinical Impression: Hypertensive emergency without congestive heart failure Renal failure (ARF), acute on chronic Qualifiers: Acute renal failure type: unspecified Chronic kidney disease stage: unspecified stage Qualified Code(s): N17.9 - Acute kidney failure, unspecified Condition: Serious
[2022-03-19 11:47] LABS: BASOPHILS % (AUTO) 0.7 %; EOSINOPHILS # (AUTO) 0.2 10^3/uL (0.0-0.7); EOSINOPHILS % (AUTO) 3.5 %; HCT - HEMATOCRIT 31.9 % (42.0-52.0); HGB - HEMOGLOBIN 10.6 g/dL (14.0-18.0); LYMPHOCYTES # (AUTO) 1.4 10^3/uL (1.5-3.5); LYMPHOCYTES % (AUTO) 25.6 %; MEAN CORPUSCULAR HEMOGLOBIN 30.4 pg (27.0-31.0); MEAN CORPUSCULAR HGB CONC 33.2 g/dL (32.0-36.0); MEAN CORPUSCULAR VOLUME 91.4 fL (80.0-94.0); MEAN PLATELET VOLUME 10.3 fL (7.4-11.4); MONOCYTES # (AUTO) 0.6 10^3/uL (0.0-1.0); MONOCYTES % (AUTO) 10.1 %; NEUTROPHILS # (AUTO) 3.3 10^3/uL (1.5-6.6); NEUTROPHILS % (AUTO) 59.9 %; PLT - PLATELET COUNT 115 10^3/uL (130-450); RED BLOOD COUNT 3.49 10^6/uL (4.70-6.10); RED CELL DISTRIBUTION WIDTH 16.2 % (12.0-15.0); WHITE BLOOD COUNT 5.5 x10^3/uL (4.8-10.8)
--- NOTE | 2022-03-19 12:09 | XRAY Report ---
PROCEDURE: Chest 1 View X-Ray INDICATIONS: Chest Pain TECHNIQUE: One view of the chest was acquired. COMPARISON: 10/06/2020 FINDINGS: Surgical changes and devices: None. Lungs and pleura: No pleural effusions or pneumothorax. Lungs are clear. Mediastinum: Mediastinal contours appear normal. Heart size is normal. Bones and chest wall: No suspicious bony lesions. Overlying soft tissues appear unremarkable. IMPRESSION: No acute cardiopulmonary findings Reviewed by: Rah Hsieh MD on 03/19/2022 11:08 AM JG Approved by: Rah Hsieh MD on 03/19/2022 11:08 AM JG Station ID: [id number]
[2022-03-19 12:15] LABS: ALBUMIN 4.3 g/dL (3.2-5.5); ALBUMIN/GLOBULIN RATIO 1.3 (1.0-2.2); BILIRUBIN,TOTAL 2.8 mg/dL (0.2-1.0); CALCIUM 9.8 mg/dL (8.5-10.3); POTASSIUM 4.2 mmol/L (3.5-5.0); TOTAL PROTEIN 7.7 g/dL (6.7-8.2)
[2022-03-19 12:18] LABS: CREATININE 10.1 mg/dL (0.6-1.2)
[2022-03-19] MEDS ORDERED: NICARDIPINE HCL 25 MG in SODIUM CHLORIDE 0.9% 240 ML IV STA (12:22)
[2022-03-19 12:59] LABS: BILIRUBIN,URINE NEGATIVE (NEGATIVE); GLUCOSE, URINE (UA) NEGATIVE (NEGATIVE); KETONES,URINE (UA) TRACE mg/dL (NEGATIVE); LEUKOCYTE ESTERASE, URINE NEGATIVE (NEGATIVE); NITRITE,URINE NEGATIVE (NEGATIVE); OCCULT BLOOD,URINE LARGE (NEGATIVE); PROTEIN,URINE >=300 mg/dL (NEGATIVE); UROBILINOGEN,URINE 0.2 (NORMAL) E.U./dL (NORMAL)
[2022-03-19 13:10] LABS: CLARITY,URINE CLEAR (CLEAR)
[2022-03-19 13:11] LABS: BACTERIA,URINE Few /HPF (None Seen); CASTS, URINE 0-2 Course Granular /LPF; RBC,URINE 0-5 /HPF (0-5); SQUAMOUS EPITHELIAL CELL,UR RARE Squamous (<= Few); WBC,URINE 0-3 /HPF (0-3)
[2022-03-19] MEDS ORDERED: LORazepam 2 MG/ML VIAL IVP STA (15:28)
[2022-03-19 16:45] VITALS: BP 176/129
== END 2022-03-19 17:26 | disposition short-term general hospital (02) ==
LOC: ED 11:07
DX: I16.1 Hypertensive emergency (principal); N17.9 Acute kidney failure, unspecified; Z20.822 Contact with and (suspected) exposure to COVID-19
CPT/HCPCS: 36415; 71045; 80053; 81001; 83615; 83690; 84484; 85025; 87635; 93005; 96361; 96365; 96375; 99291; J2060; 81003; 87086

== ENCOUNTER 2022-04-15 11:23 | Emergency (ER) | payer OTHER ==
[2022-04-15] MEDS ORDERED: ONDANSETRON 4 MG/2 ML VIAL IVP STA (11:48)
[2022-04-15 11:50] LABS: BASOPHILS # (AUTO) 0.1 10^3/uL (0.0-0.1); BASOPHILS % (AUTO) 0.7 %; EOSINOPHILS # (AUTO) 0.1 10^3/uL (0.0-0.7); EOSINOPHILS % (AUTO) 1.9 %; HCT - HEMATOCRIT 31.2 % (42.0-52.0); HGB - HEMOGLOBIN 10.1 g/dL (14.0-18.0); LYMPHOCYTES % (AUTO) 13.6 %; MEAN CORPUSCULAR HEMOGLOBIN 29.9 pg (27.0-31.0); MEAN CORPUSCULAR HGB CONC 32.4 g/dL (32.0-36.0); MEAN CORPUSCULAR VOLUME 92.3 fL (80.0-94.0); MEAN PLATELET VOLUME 10.9 fL (7.4-11.4); MONOCYTES # (AUTO) 0.7 10^3/uL (0.0-1.0); MONOCYTES % (AUTO) 9.6 %; NEUTROPHILS # (AUTO) 5.5 10^3/uL (1.5-6.6); NEUTROPHILS % (AUTO) 73.9 %; PLT - PLATELET COUNT 109 10^3/uL (130-450); RED BLOOD COUNT 3.38 10^6/uL (4.70-6.10); RED CELL DISTRIBUTION WIDTH 15.1 % (12.0-15.0); WHITE BLOOD COUNT 7.4 x10^3/uL (4.8-10.8)
--- NOTE | 2022-04-15 11:52 | ED Physician Documentation ---
History of Present Illness - Stated complaint Stated Complaint: N/V/D ABD PX - Chief complaint Chief Complaint: Abd Pain - Additonal information Additional information: 32-year-old male presents emergency department for evaluation of 3 days nausea vomiting and now diarrhea. He reports that he ate a sandwich from a local company Sunday afternoon he began having some nausea though he was able to tolerate dialysis that afternoon as well as Sunday. However he began having some vomiting and diarrhea Sunday evening. All nonbloody. No fevers. He was recently discharged from a lengthy hospitalization at [facility]'s for hypertensive emergency and renal failure. He reports that he has a long-term dialysis plan in place. No pertinent past surgical history. Review of Systems Constitutional: denies: Fever, Chills Eyes: reports: Reviewed and negative Cardiac: reports: Reviewed and negative Respiratory: reports: Reviewed and negative GI: reports: Abdominal Pain, Nausea, Vomiting, Diarrhea : reports: Reviewed and negative Skin: reports: Reviewed and negative PD PAST MEDICAL HISTORY - Past Medical History Cardiovascular: Hypertension : Dialysis - Past Surgical History Past Surgical History: No - Present Medications Home Medications: Ambulatory Orders Medication Instructions Recorded Confirmed Chlorthalidone 12.5 mg PO DAILY 03/19/22 03/19/22 amLODIPine [Norvasc] 12.5 mg PO DAILY 03/19/22 03/19/22 carvediloL [Coreg] 12.5 mg PO BID 03/19/22 03/19/22 Ondansetron Odt [Zofran] 4 mg TL Q6H PRN #10 tablet 04/15/22 - Allergies Allergies/Adverse Reactions: Allergies Allergy/AdvReac Type Severity Reaction Status Date / Time No Known Drug Allergies Allergy Verified 02/22/22 14:37 - Social History Does the pt smoke?: No Smoking Status: Never smoker Does the pt drink ETOH?: Yes Does the pt have substance abuse?: No - Immunizations Immunizations are current?: No - POLST Patient has POLST: No PD ED PE NORMAL - General General: Alert and oriented X 3, No acute distress, Well developed/nourished - HEENT HEENT: Atraumatic, Moist mucous membranes - Neck Neck: Supple, no meningeal sign, No adenopathy - Cardiac Cardiac: RRR, No murmur, Other (Vas-Cath exiting right upper chest) - Respiratory Respiratory: No respiratory distress - Abdomen Abdomen: Soft, Non tender (generally tender, non peritoneal), Non distended. No: Normal bowel sounds (hyperactive) - Back Back: No CVA TTP, No spinal TTP - Derm Derm: Normal color, Warm and dry, No rash - Neuro Neuro: Alert and oriented X 3, supervisor pleating 2-12 intact Eye Opening: Spontaneous Motor: Obeys Commands Verbal: Oriented GCS Score: 15 Results - Vitals Vitals: Vital Signs - 24 hr 04/15/22 04/15/22 11:31 13:34 Temperature 37.1 C Heart Rate 82 81 Respiratory 18 18 Rate Blood Pressure 181/123 H 184/118 H O2 Saturation 94 98 Oxygen O2 Source Room air - Labs Labs: Laboratory Tests 04/15/22 04/15/22 11:42 11:42 WBC 7.4 RBC 3.38 L Hgb 10.1 L Hct 31.2 L MCV 92.3 MCH 29.9 MCHC 32.4 RDW 15.1 H Plt Count 109 L MPV 10.9 Neut # (Auto) 5.5 Lymph # (Auto) 1.0 L [place] # (Auto) 0.7 Eos # (Auto) 0.1 Baso # (Auto) 0.1 Absolute Nucleated RBC 0.00 Nucleated RBC % 0.0 Sodium 136 Potassium 3.8 Chloride 95 L Carbon Dioxide 23 Anion Gap 18.0 H BUN 39 H Creatinine 7.1 H* Estimated GFR (MDRD) 11 L Glucose 92 Calcium 9.4 Phosphorus 5.5 H Magnesium 2.0 Total Bilirubin 2.9 H AST 27 ALT 22 Alkaline Phosphatase 62 Total Protein 7.0 Albumin 4.0 Globulin 3.0 Albumin/Globulin Ratio 1.3 - Rads (name of study) CT abd Radiology: Final report received (Abnormal thickening of the small bowel in the left abdomen small to moderate volume ascites. These findings could be seen in the setting of an enteritis. Etiology is uncertain in younger adult. No pneumoperitoneum. Small pericardial effusion. Heart size appears prominent. Kidneys are atrophic) PD MEDICAL DECISION MAKING - ED course Complexity details: reviewed old records, reviewed results, re-evaluated patient, considered differential, d/w patient ED course: 32-year-old male who has a history of end-stage renal disease on 3 times weekly dialysis presents the emergency department for evaluation of 3 days nausea and now 24 hours vomiting and diarrhea. All output nonbloody. No fevers. He had some generalized but nonfocal and nonperitoneal abdominal pain on exam. We did obtain a CBC that showed no leukocytosis and unchanged baseline anemia. Electrolytes are consistent with known kidney failure for which she is on 3 times weekly dialysis. Initially in the emergency department the patient was given Zofran which controlled his nausea and he was tolerating sips of clear liquids. However he did have some abdominal cramping after this thus he was given a dose of Compazine and felt better. CT scan was completed that did show some generalized small bowel thickening most consistent with an enteritis. Here in the emergency department after appropriate antenausea he is tolerating sips of clear liquid and does feel better and will be discharged home. Prescription for Zofran is being sent to the pharmacy. He has neck scheduled for dialysis on Sunday. We did discuss the appropriate emergent worrisome return precautions. Departure - Departure Disposition: Home, Self Care Clinical Impression: Nausea vomiting and diarrhea, Thickened small bowel, ESRD (end stage renal disease) on dialysis Hypertension Qualifiers: Hypertension type: unspecified secondary hypertension Qualified Code(s): I15.9 - Secondary hypertension, unspecified; I15 - Secondary hypertension Condition: Serious Record reviewed to determine appropriate education?: Yes Prescriptions: Ondansetron Odt [Zofran] 4 mg TL Q6H PRN #10 tablet PRN Reason: Nausea / Vomiting Comments: Thuan you are seen today in the emergency department because you have had some vomiting and diarrhea for the last few days. Here in the emergency department your BUN was 39 and your creatinine was 7.1. This is consistent and unchanged with your known kidney disease. Your hemoglobin today is 10.1. Again unchanged. We did do a CT scan of your abdomen and it does show small bowel thickening which is consistent with a condition called enteritis. Enteritis simply means inflammation of the intestine and is often seen in conditions such as gastroenteritis also known as the stomach flu. Here in the emergency department we did give you some Zofran and Compazine and we have been able to get you to tolerate sips of clear liquids. I suspect that your symptoms will simply get better over the next few days. I have sent a prescription for some Zofran to the [facility] in [place]. I recommend frequent sips of clear liquids over the next 24 to 48 hours. If your symptoms are not improving, you develop any black or bloody stools, have bloody vomit then please return immediately to the ER for a second evaluation. Please continue to follow closely with your primary care doctor as well as your dialysis physicians for longer-term management of your kidney disease and high blood pressure.
[2022-04-15 12:12] LABS: ALBUMIN/GLOBULIN RATIO 1.3 (1.0-2.2); BILIRUBIN,TOTAL 2.9 mg/dL (0.2-1.0); CALCIUM 9.4 mg/dL (8.5-10.3); PHOSPHORUS 5.5 mg/dL (2.5-4.6); POTASSIUM 3.8 mmol/L (3.5-5.0)
[2022-04-15 12:14] LABS: CREATININE 7.1 mg/dL (0.6-1.2)
--- NOTE | 2022-04-15 12:42 | CT Report ---
PROCEDURE: ABDOMEN/PELVIS WO INDICATIONS: n/v/d TECHNIQUE: Noncontrast 5 mm thick sections acquired from the diaphragms to the symphysis. 5 mm coronal and sagi ttal reformats were then performed. For radiation dose reduction, the following was used: automated exposure control, adjustment of mA and/or kV according to patient size. COMPARISON: CXR 03/19/2022.. FINDINGS: Image quality: Excellent. ABDOMEN: Lung bases: Lung bases are clear. No pleural effusion. Mild pericardial effusion. Heart size is prom inent. Solid organs: Liver and spleen are normal in size. Gallbladder is not distended. Pancreas is raymond l in contours. No adrenal nodules. Right kidney measures 6.9 cm. Left kidney measures 7.6 cm. The ki dneys are somewhat small in size. There is a clip or coil at the inferior pole the right kidney. No h ydronephrosis appreciated. Peritoneum and bowel: The small bowel in the left abdomen demonstrates wall thickening, (3/33). No sm all bowel obstruction is demonstrated. There is small to moderate volume of ascites. No pneumoperiton eum. No pneumatosis intestinalis demonstrated. Nodes and vessels: No retroperitoneal or mesenteric adenopathy by size criteria. Aorta and inferior vena cava are normal in caliber. Miscellaneous: No ventral hernias. PELVIS: Genitourinary: Bladder is mostly decompressed. No stone. Miscellaneous: No inguinal hernias or adenopathy. Bones: No suspicious bony lesions. No vertebral body compression fractures. IMPRESSION: 1. Abnormal thickening of the small bowel in the left abdomen. Small to moderate volume of ascites. T hese findings could be seen in the setting of an enteritis. Etiology is uncertain in this younger porfirio lt. 2. No pneumoperitoneum. 3. Small pericardial effusion. Heart size appears prominent. 4. Kidneys are somewhat atrophic. Results were communicated to Sho Britt at 04/15/2022 11:40 AM JG. Reviewed by: Sherwin Frederick MD on 04/15/2022 11:41 AM JG Approved by: Sherwin Frederick MD on 04/15/2022 11:41 AM JG Station ID: [id number]
[2022-04-15] MEDS ORDERED: PROCHLORPERAZINE 10 MG/2 ML VIAL IVP STA (14:19)
[2022-04-15 15:06] VITALS: BP 159/111
== END 2022-04-15 15:06 | disposition home or self-care (01) ==
LOC: ED 11:23
DX: K63.9 Disease of intestine, unspecified (principal); I12.0 Hypertensive chronic kidney disease with stage 5 chronic kidney disease or end stage renal disease; N18.6 End stage renal disease; Z99.2 Dependence on renal dialysis
CPT/HCPCS: 36415; 80053; 83735; 84100; 85025; 96374; 96375; 99284

== ENCOUNTER 2022-06-16 00:37 | Emergency (ER) | payer OTHER ==
[2022-06-16 01:12] LABS: BASOPHILS % (AUTO) 0.2 %; EOSINOPHILS # (AUTO) 0.3 10^3/uL (0.0-0.7); HGB - HEMOGLOBIN 10.3 g/dL (14.0-18.0); LYMPHOCYTES # (AUTO) 1.6 10^3/uL (1.5-3.5); LYMPHOCYTES % (AUTO) 39.9 %; MEAN CORPUSCULAR HEMOGLOBIN 29.9 pg (27.0-31.0); MEAN CORPUSCULAR HGB CONC 32.2 g/dL (32.0-36.0); MEAN PLATELET VOLUME 9.5 fL (7.4-11.4); MONOCYTES # (AUTO) 0.6 10^3/uL (0.0-1.0); MONOCYTES % (AUTO) 14.6 %; NEUTROPHILS # (AUTO) 1.5 10^3/uL (1.5-6.6); NEUTROPHILS % (AUTO) 37.1 %; PLT - PLATELET COUNT 183 10^3/uL (130-450); RED BLOOD COUNT 3.44 10^6/uL (4.70-6.10); RED CELL DISTRIBUTION WIDTH 13.4 % (12.0-15.0); WHITE BLOOD COUNT 4.1 x10^3/uL (4.8-10.8)
[2022-06-16 01:34] LABS: ALBUMIN 3.7 g/dL (3.2-5.5); ALBUMIN/GLOBULIN RATIO 1.1 (1.0-2.2); BILIRUBIN,TOTAL 0.3 mg/dL (0.2-1.0); CALCIUM 8.5 mg/dL (8.5-10.3); POTASSIUM 4.2 mmol/L (3.5-5.0); TOTAL PROTEIN 7.2 g/dL (6.7-8.2)
[2022-06-16 01:40] LABS: CREATININE 9.9 mg/dL (0.6-1.2)
--- NOTE | 2022-06-16 01:42 | XRAY Report ---
PROCEDURE: Chest 1 View X-Ray INDICATIONS: chest pain TECHNIQUE: One view of the chest was acquired. COMPARISON: Chest x-ray 03/19/2022 FINDINGS: Surgical changes and devices: None. Lungs and pleura: No pleural effusions or pneumothorax. Lungs are clear. Mediastinum: Mediastinal contours appear normal. Heart size is normal. Bones and chest wall: No suspicious bony lesions. Overlying soft tissues appear unremarkable. IMPRESSION: No acute pulmonary process. Reviewed by: Dorothy Hilario MD on 06/16/2022 1:41 AM PST Approved by: Dorothy Hilario MD on 06/16/2022 1:41 AM [facility] Station ID: [id number]
--- NOTE | 2022-06-16 02:20 | ED Physician Documentation ---
History of Present Illness - Stated complaint Stated Complaint: DIALYSIS CATH ISSUE - Chief complaint Chief Complaint: General - History obtained from History obtained from: Patient - Additonal information Additional information: Pt is brought to the ED after dialysis cath came out of R chest wall. He states he rolled over in bed and the catheter slid out. He just had dialysis today, and is feeling well. Bleeding is controlled, and wound dressed, but pt was advised to come to the ED to have labs and a CXR. No SOB. No CP. His nephrologists are through [facility] and the [place]. Review of Systems Constitutional: reports: Reviewed and negative Eyes: reports: Reviewed and negative Ears: reports: Reviewed and negative Nose: reports: Reviewed and negative Throat: reports: Reviewed and negative Cardiac: reports: Reviewed and negative Respiratory: reports: Reviewed and negative GI: reports: Reviewed and negative : reports: Reviewed and negative Skin: reports: Reviewed and negative Musculoskeletal: reports: Reviewed and negative Neurologic: reports: Reviewed and negative Psychiatric: reports: Reviewed and negative Endocrine: reports: Reviewed and negative Immunocompromised: reports: Reviewed and negative PD PAST MEDICAL HISTORY - Past Medical History Cardiovascular: Hypertension : Dialysis - Past Surgical History Past Surgical History: No - Present Medications Home Medications: Ambulatory Orders Medication Instructions Recorded Confirmed Chlorthalidone 12.5 mg PO DAILY 03/19/22 03/19/22 amLODIPine [Norvasc] 12.5 mg PO DAILY 03/19/22 03/19/22 carvediloL [Coreg] 12.5 mg PO BID 03/19/22 03/19/22 Ondansetron Odt [Zofran] 4 mg TL Q6H PRN #10 tablet 04/15/22 - Allergies Allergies/Adverse Reactions: Allergies Allergy/AdvReac Type Severity Reaction Status Date / Time No Known Drug Allergies Allergy Verified 06/16/22 01:48 - Social History Does the pt smoke?: No Smoking Status: Never smoker Does the pt drink ETOH?: Yes Does the pt have substance abuse?: No - Immunizations Immunizations are current?: No - POLST Patient has POLST: No PD ED PE NORMAL - Vitals Vital signs reviewed: Yes - General General: Alert and oriented X 3, No acute distress, Well developed/nourished - HEENT HEENT: Atraumatic, PERRL, EOMI, Moist mucous membranes - Neck Neck: Supple, no meningeal sign - Cardiac Cardiac: RRR, No murmur, Strong equal pulses - Respiratory Respiratory: No respiratory distress, Clear bilaterally - Abdomen Abdomen: Soft, Non tender, Non distended - Derm Derm: Normal color, Warm and dry, No rash, Other (occlusive, translucent dressing on R CW. Bleeding controlled.) - Extremities Extremities: No deformity - Neuro Neuro: Alert and oriented X 3 - Psych Psych: Normal mood, Normal affect Results - Vitals Vitals: Oxygen O2 Source Room air - Labs Labs: Laboratory Tests 06/16/22 06/16/22 01:06 01:06 WBC 4.1 L RBC 3.44 L Hgb 10.3 L Hct 32.0 L MCV 93.0 MCH 29.9 MCHC 32.2 RDW 13.4 Plt Count 183 MPV 9.5 Neut # (Auto) 1.5 Lymph # (Auto) 1.6 [place] # (Auto) 0.6 Eos # (Auto) 0.3 Baso # (Auto) 0.0 Absolute Nucleated RBC 0.00 Nucleated RBC % 0.0 Sodium 138 Potassium 4.2 Chloride 99 L Carbon Dioxide 25 Anion Gap 14.0 H BUN 56 H Creatinine 9.9 H* Estimated GFR (MDRD) 7 L Glucose 133 H Calcium 8.5 Total Bilirubin 0.3 AST 12 ALT 18 Alkaline Phosphatase 56 Total Protein 7.2 Albumin 3.7 Globulin 3.5 Albumin/Globulin Ratio 1.1 Lipase 74 H - Rads (name of study) chest xR Radiology: Prelim report reviewed, See rad report (NAD) PD Medical Decision Making - ED course Complexity details: reviewed results, re-evaluated patient, considered differential, d/w patient ED course: The pt's labs and CXR were unremarkable, other than the expected renal abnormalities. I d/w pt that we do not have the capability to replace the catheter. 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 I have advised him to call them first thing in the morning to see what they would advise. He does not need dialysis until the . We have discussed care of the wound at home. Departure - Departure Disposition: 01 Home, Self Care Clinical Impression: Encounter for dialysis catheter care, ESRD (end stage renal disease) on dialysis Condition: Stable Instructions: ED Dialysis Hemo Comments: Your labs overall look fairly good with the exception of your kidney labs. Your chest x-ray is clear. At this point in time, as we have discussed, given that we do not have either dialysis capabilities or interventional radiology capabilities here, and given is the middle of the night, we are not able to replace the dialysis catheter tonight. Transfer is also not an option for this problem. The best thing to do at this point is to get some rest at home and then call your nephrology offices first thing in the morning and see what they recommend. It is likely that they will recommend that you go to an emergency department to request that your catheter be replaced. The closest facility with dialysis capabilities would be scheduled to, though since you are already established with [facility] in the [place], these would be good options as well. As far as your wound, you should leave the dressing in place for approximately another 12 hours to allow the wound to form a more stable clot. After this, you may change the dressing. Discharge Date/Time: 06/16/22 02:29
[2022-06-16 02:29] VITALS: BP 129/81
== END 2022-06-16 02:29 | disposition home or self-care (01) ==
LOC: EDUNIT# → ED 00:37
DX: T82.42XA Displacement of vascular dialysis catheter, initial encounter (principal); N18.6 End stage renal disease; Z99.2 Dependence on renal dialysis; I10 Essential (primary) hypertension
CPT/HCPCS: 36415; 80053; 83690; 85025; 99282; 99284

== ENCOUNTER → 2022-06-16 | Outpatient (CLI) | payer OTHER | END | disposition critical access hospital (66) | LOC: EMS 06-15 00:22 | DX: T82.42XA Displacement of vascular dialysis catheter, initial encounter (principal) | CPT/HCPCS: A0425; A0429 ==

== ENCOUNTER 2022-09-14 14:00 | Outpatient (CLI) | payer OTHER | END 2022-09-14 14:01 | disposition critical access hospital (66) | LOC: EMS 14:00 | DX: R61 Generalized hyperhidrosis (principal); Z99.2 Dependence on renal dialysis; R68.83 Chills (without fever); R53.1 Weakness; R53.83 Other fatigue; R42 Dizziness and giddiness; R51.9 Headache, unspecified; R40.0 Somnolence; E16.2 Hypoglycemia, unspecified | CPT/HCPCS: A0425; A0429 ==

== ENCOUNTER 2022-09-14 14:17 | Emergency (ER) | payer OTHER ==
[2022-09-14] MEDS ORDERED: DEXTROSE 10% 250 ML IV ONE (14:31)
[2022-09-14] MEDS: DEXTROSE 10% 250 ML IV STA (14:35)
--- NOTE | 2022-09-14 14:42 | ED Physician Documentation ---
PD HPI ALTERED MENTAL STATUS - Stated complaint Stated Complaint: HYPOGLYCEMIC - History obtained from History obtained from: Patient, Family, Friend (life partner and his mother are in ER to give extra information. His partner came home to find pt unresponsive/minimally rousable, lying bed. EMS called and they found blod sugar of 44. Patient not diabetic. Given PO glucose and then some iv withincrease of blood sugar to 59 and slightly more alert.) - History of Present Illness Timing - onset: Today Timing - details: Gradual onset, Now resolved (improved with IV dextrose enroute by EMS.) Quality / character: Unresponsive Associated symptoms: No: Headache, Cough, NVD, Focal weakness Contributing factors: Intoxicated (his partner states that the patient had had a lot of alcohol last evening without eating and then went to bed and had not awoken as yet today. He reportedly was not ill yesterday. History of intermittent alcohol use, not daily.). 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 Has been on dialysis since last November or so, per Mother.) Review of Systems Constitutional: reports: Chills (spouse states she noted him to have cold sweats this morning.). 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 ) - Past Surgical History Past Surgical History: No - Present Medications Home Medications: Ambulatory Orders Medication Instructions Recorded Confirmed Chlorthalidone 12.5 mg PO DAILY 03/19/22 03/19/22 amLODIPine [Norvasc] 12.5 mg PO DAILY 03/19/22 03/19/22 carvediloL [Coreg] 12.5 mg PO BID 03/19/22 03/19/22 Ondansetron Odt [Zofran] 4 mg TL Q6H PRN #10 tablet 04/15/22 - Allergies Allergies/Adverse Reactions: Allergies Allergy/AdvReac Type Severity Reaction Status Date / Time No Known Drug Allergies Allergy Verified 09/14/22 14:44 - Living Situation Living Situation: reports: With spouse/s.o. Living Arrangement: reports: At home - Social History Does the pt smoke?: No Smoking Status: Never smoker Does the pt drink ETOH?: Yes Does the pt have substance abuse?: No - Immunizations Immunizations are current?: No - POLST Patient has POLST: No PD ED PE NORMAL - Vitals Vital signs reviewed: Yes - General General: Well developed/nourished, Other (sleepy but rousable to give mumbling answers on arrival. Given D10W bag for hypoglycemia and he had steady rousing of alertness. He did feel cool to the touch. ) - HEENT HEENT: Atraumatic, Pharynx benign - Neck Neck: No adenopathy - Cardiac Cardiac: No murmur. No: RRR (regular but bradycardic. ) - Respiratory Respiratory: Clear bilaterally - Abdomen Abdomen: Soft, Non tender, Non distended. No: Normal bowel sounds (decreased) - Derm Derm: No rash. No: Warm and dry - Neuro Neuro: No motor deficit, No sensory deficit. 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 ) Eye Opening: To Voice Motor: Obeys Commands Verbal: Confused GCS Score: 13 Results - Vitals Vitals: Vital Signs - 24 hr 09/14/22 09/14/22 09/14/22 14:38 15:13 16:36 Temperature 30.9 C L 33.2 C L Heart Rate 53 L 96 Respiratory 12 10 L Rate Blood Pressure 103/62 114/80 O2 Saturation 97 100 09/14/22 09/14/22 09/14/22 17:27 17:30 18:07 Temperature 36.4 C L Heart Rate 64 71 Respiratory 15 12 Rate Blood Pressure 104/60 112/70 O2 Saturation 100 99 09/14/22 09/14/22 18:30 19:00 Temperature Heart Rate 85 83 Respiratory 18 20 Rate Blood Pressure 112/71 110/84 H O2 Saturation 100 99 Oxygen O2 Source Room air - Labs Labs: Laboratory Tests 09/14/22 09/14/22 09/14/22 14:57 17:15 17:15 WBC 6.3 RBC 4.60 L Hgb 14.0 Hct 43.0 MCV 93.5 MCH 30.4 MCHC 32.6 RDW 14.6 Plt Count 294 MPV 10.2 Neut # (Auto) 5.4 Lymph # (Auto) 0.6 L [place] # (Auto) 0.2 Eos # (Auto) 0.0 Baso # (Auto) 0.0 Absolute Nucleated RBC 0.00 Nucleated RBC % 0.0 Sodium 133 L Potassium 4.0 Chloride 93 L Carbon Dioxide 24 Anion Gap 16.0 H BUN 46 H Creatinine 7.4 H* Estimated GFR (MDRD) 10 L Glucose 169 H Lactic Acid Calcium 8.6 Magnesium 1.9 Total Bilirubin 0.7 AST 325 H ALT 247 H Alkaline Phosphatase 83 C-Reactive Protein < 1.0 Total Protein 8.3 H Albumin 4.2 Globulin 4.1 Albumin/Globulin Ratio 1.0 Lipase 52 H Urine Color Urine Clarity Urine pH Ur Specific Friona Urine Protein Urine Glucose (UA) Urine Ketones Urine Occult Blood Urine Nitrite Urine Bilirubin Urine Urobilinogen Ur Leukocyte Esterase Urine RBC Urine WBC Ur Squamous Epith Cells Urine Bacteria Urine Casts Ur Microscopic Review Urine Culture Comments Nasal Adenovirus (PCR) NOT DETECTED Nasal B. parapertussis DNA (PCR) NOT DETECTED Nasal Coronavir 229E PCR NOT DETECTED Nasal Coronavir HKU1 PCR NOT DETECTED Nasal Coronavir NL63 PCR NOT DETECTED Nasal Coronavir OC43 PCR NOT DETECTED Nasal Enterovir/Rhinovir PCR NOT DETECTED Nasal Influenza B PCR NOT DETECTED Nasal Influenza A PCR NOT DETECTED Nasal Parainfluen 1 PCR NOT DETECTED Nasal Parainfluen 2 PCR NOT DETECTED Nasal Parainfluen 3 PCR NOT DETECTED Nasal Parainfluen 4 PCR NOT DETECTED Nasal RSV (PCR) NOT DETECTED Nasal B.pertussis DNA PCR NOT DETECTED Nasal C.pneumoniae (PCR) NOT DETECTED [place] Human Metapneumo PCR NOT DETECTED Nasal M.pneumoniae (PCR) NOT DETECTED Nasal SARS-CoV-2 (PCR) NOT DETECTED Urine Opiates Screen Ur Oxycodone Screen Urine Methadone Screen Ur Propoxyphene Screen Ur Barbiturates Screen Ur Tricyclics Screen Ur Phencyclidine Scrn Ur Amphetamine Screen U Methamphetamines Scrn U Benzodiazepines Scrn Urine Cocaine Screen U Cannabinoids Screen Ethyl Alcohol 12.2 09/14/22 09/14/22 09/14/22 17:15 18:00 19:05 WBC RBC Hgb Hct MCV MCH MCHC RDW Plt Count MPV Neut # (Auto) Lymph # (Auto) [place] # (Auto) Eos # (Auto) Baso # (Auto) Absolute Nucleated RBC Nucleated RBC % Sodium Potassium Chloride Carbon Dioxide Anion Gap BUN Creatinine Estimated GFR (MDRD) Glucose Lactic Acid 2.9 H 1.3 Calcium Magnesium Total Bilirubin AST ALT Alkaline Phosphatase C-Reactive Protein Total Protein Albumin Globulin Albumin/Globulin Ratio Lipase Urine Color YELLOW Urine Clarity CLEAR Urine pH 6.0 Ur Specific Fr[place] 1.020 Urine Protein 30 H Urine Glucose (UA) NEGATIVE Urine Ketones NEGATIVE Urine Occult Blood SMALL H Urine Nitrite NEGATIVE Urine Bilirubin NEGATIVE Urine Urobilinogen 0.2 (NORMAL) Ur Leukocyte Esterase NEGATIVE Urine RBC 0-5 Urine WBC 0-3 Ur Squamous Epith Cells NONE SEEN Urine Bacteria None Seen Urine Casts 0-2 Hyaline Casts Ur Microscopic Review INDICATED Urine Culture Comments NOT INDICATED Nasal Adenovirus (PCR) Nasal B. parapertussis DNA (PCR) Nasal Coronavir 229E PCR Nasal Coronavir HKU1 PCR Nasal Coronavir NL63 PCR Nasal Coronavir OC43 PCR Nasal Enterovir/Rhinovir PCR Nasal Influenza B PCR Nasal Influenza A PCR Nasal Parainfluen 1 PCR Nasal Parainfluen 2 PCR Nasal Parainfluen 3 PCR Nasal Parainfluen 4 PCR Nasal RSV (PCR) Nasal B.pertussis DNA PCR Nasal C.pneumoniae (PCR) [place] Human Metapneumo PCR Nasal M.pneumoniae (PCR) Nasal SARS-CoV-2 (PCR) Urine Opiates Screen NEGATIVE Ur Oxycodone Screen NEGATIVE Urine Methadone Screen NEGATIVE Ur Propoxyphene Screen NEGATIVE Ur Barbiturates Screen NEGATIVE Ur Tricyclics Screen NEGATIVE Ur Phencyclidine Scrn NEGATIVE Ur Amphetamine Screen NEGATIVE U Methamphetamines Scrn NEGATIVE U Benzodiazepines Scrn NEGATIVE Urine Cocaine Screen NEGATIVE U Cannabinoids Screen NEGATIVE Ethyl Alcohol - Rads (name of study) chest xray Relevant Findings:: Prelim report reviewed, EMP independent interpretation of test (no infiltrates nor acute infectious process. ), See rad report PD Medical Decision Making - ED course Complexity details: reviewed results, considered differential (low blood sugar and low temp. Could related to not eating much and drank heavily last night (not regular event per partner). However concern would be for surrogate markers for sepsis, so will search for infectious sources. ), d/w patient, d/w family ( and partner both give supplemental inforemation as patient not giving much history initially. ) Reviewed Lab Results: WBC is normal range. Initial lactate ordered by me was elevated mildly at 2.9. However, a repeat of it within just couple of hours was improved to 1.3. Blood sugar remained good range (about 160-180 over several hours) after alert and taking PO foods. He is feeling well and alert and smiling once blood sugar improved and given some iV fluids. Evaluation of chest xray, resp viral panel, UA are without signs of infection. Abdomen is not tender at all on couple of separate exams. No noted areas of skin tenderness/sores. The area around his catheter on chest is without redness nor tenderness. No signs of focus of infection. His body temp improved with warming blanket. He feels well and appears non-ill. I talked with paper conservator Nephrology at the [place], paper conservator for his renal doctor. The opinion is the patient is okay from renal perspective if the UA is good and lytes are okay. The specialist reviewed the patient charts/meds on record at the [facility] and did not see any meds that would cause low blood sugar. The patient's partner is not diabetic so there are not any hypoglycemic agents (injection nor oral) that could be mistakenly taken. 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 At this point, he is appearing well. No source of infection. Blood cultures are drawn. Presume for now that he had low blood sugar from poor claorie intake, and was intoxicated which did not allow him to awaken/be stimulated by appropriate body triggers, and lack of energy production allowed body temp to lower. Seems plausible though I feel the concern for sepsis/infection was very high and needed to be evaluated. He will be getting dialysis tomorrow, so has close follow up. Has a life partner with whom he lives and his mother is nearby as well, so good social support, which makes discharge more comfortable. His blood sugar and temp are normal now and have remained that way for hours. Prolonged time in the ER as I wanted to ensure he was doing well and staying well with regard to alrtness, sugar, temp, and not developing clinical appearance of infections/sepsis. He continued to improve clinically and so safe for discharge. Partner and mother present and in agreement as well as the patient. Departure - Departure Disposition: 01 Home, Self Care Clinical Impression: Altered mental status, Acute metabolic encephalopathy due to hypoglycemia, Hypothermia, Dialysis patient Condition: Stable Record reviewed to determine appropriate education?: Yes Follow-Up: [facility] [Provider Group] Comments: Stay well-hydrated and normal diet. Avoid excess alcohol. Stay warm. Dialysis tomorrow as planned. I did talk with the on-call investigation division captain at the [place] and they will pass the information on this to your primary investigation division captain. Return if any further problems. Continue usual medicines. The concern was for potential sepsis as a cause of the low blood sugar and low body temperature. However there is really no indications for source of infection or problems based on the testing we did here. You are looking well improved with and increased temperature and sustained sugar/dietary intake. At this point it feels comfortable to discharge you in improved condition. Discharge Date/Time: 09/14/22 19:57
[2022-09-14] MEDS: SODIUM CHLORIDE 0.9% 1,000 ML IV STA (14:55)
--- NOTE | 2022-09-14 15:35 | XRAY Report ---
PROCEDURE: Chest 1 View X-Ray INDICATIONS: altered mental status TECHNIQUE: One view of the chest was acquired. COMPARISON: None. FINDINGS: Surgical changes and devices: Tunneled right-sided dialysis catheter in place. Lungs and pleura: No pleural effusions or pneumothorax. Lungs are clear. Low lung volumes accentua te pulmonary interstitium and heart size. Mediastinum: Mediastinal contours appear normal. Heart size is normal. Bones and chest wall: No suspicious bony lesions. Overlying soft tissues appear unremarkable. IMPRESSION: Right-sided tunneled dialysis catheter in good position. No pneumothorax. Reviewed by: Rah Hsieh MD on 09/14/2022 2:34 PM AKDT Approved by: Rah Hsieh MD on 09/14/2022 2:34 PM AKDT Station ID: [id number]
[2022-09-14 16:04] LABS: B. PARAPERTUSSIS- RESP PCR PAN NOT DETECTED; B. PERTUSSIS- RESP PCR PANEL NOT DETECTED; C. PNEUMONIAE- RESP PCR PANEL NOT DETECTED; CORONAVIRUS 229E-RESP PCR NOT DETECTED; CORONAVIRUS HKU1-RESP PCR NOT DETECTED; CORONAVIRUS NL63-RESP PCR NOT DETECTED; CORONAVIRUS OC43-RESP PCR NOT DETECTED; HUMAN METAPNEUMOVIRUS NOT DETECTED; INFLUENZA A- RESP PCR PANEL NOT DETECTED; INFLUENZA B - RESP PCR PANEL NOT DETECTED; M. PNEUMONIAE- RESP PCR PANEL NOT DETECTED; PARAINFLUENZA VIRUS 1 NOT DETECTED; PARAINFLUENZA VIRUS 2 NOT DETECTED; PARAINFLUENZA VIRUS 3 NOT DETECTED; PARAINFLUENZA VIRUS 4 NOT DETECTED; RHINOVIRUS/ENTEROVIRUS NOT DETECTED; RSV- RESP PCR PANEL NOT DETECTED; SARS-CoV-2 -RESP PCR PANEL NOT DETECTED
[2022-09-14 17:22] LABS: BASOPHILS % (AUTO) 0.6 %; EOSINOPHILS % (AUTO) 0.2 %; LYMPHOCYTES # (AUTO) 0.6 10^3/uL (1.5-3.5); LYMPHOCYTES % (AUTO) 9.9 %; MEAN CORPUSCULAR HEMOGLOBIN 30.4 pg (27.0-31.0); MEAN CORPUSCULAR HGB CONC 32.6 g/dL (32.0-36.0); MEAN CORPUSCULAR VOLUME 93.5 fL (80.0-94.0); MEAN PLATELET VOLUME 10.2 fL (7.4-11.4); MONOCYTES # (AUTO) 0.2 10^3/uL (0.0-1.0); MONOCYTES % (AUTO) 3.5 %; NEUTROPHILS # (AUTO) 5.4 10^3/uL (1.5-6.6); NEUTROPHILS % (AUTO) 85.5 %; PLT - PLATELET COUNT 294 10^3/uL (130-450); RED CELL DISTRIBUTION WIDTH 14.6 % (12.0-15.0); WHITE BLOOD COUNT 6.3 x10^3/uL (4.8-10.8)
[2022-09-14 17:38] LABS: ALBUMIN 4.2 g/dL (3.2-5.5); ALKALINE PHOSPHATASE 83 IU/L (42-121); ALT ALANINE AMINOTRANSFERASE 247 IU/L (10-60); AST ASPARTATE AMINOTRANSFERASE 325 IU/L (10-42); BILIRUBIN,TOTAL 0.7 mg/dL (0.2-1.0); BUN - BLOOD UREA NITROGEN 46 mg/dL (6-20); CALCIUM 8.6 mg/dL (8.5-10.3); CARBON DIOXIDE - CO2 24 mmol/L (21-32); CHLORIDE 93 mmol/L (101-111); ETOH - ETHANOL 12.2 mg/dL; GFR - MDRD 10 (>89); GLUCOSE 169 mg/dL (70-100); LIPASE 52 U/L (22-51); MAGNESIUM 1.9 mg/dL (1.7-2.8); SODIUM 133 mmol/L (135-145); TOTAL PROTEIN 8.3 g/dL (6.7-8.2)
[2022-09-14 17:45] LABS: CREATININE 7.4 mg/dL (0.6-1.2); CRP - C-REACTIVE PROTEIN < 1.0 mg/dL (0-1.0)
[2022-09-14 18:10] LABS: MUDS CUTOFF CONCENTRATIONS CUTOFF CONC BELOW:
[2022-09-14 18:11] LABS: BILIRUBIN,URINE NEGATIVE (NEGATIVE); GLUCOSE, URINE (UA) NEGATIVE (NEGATIVE); KETONES,URINE (UA) NEGATIVE (NEGATIVE); LEUKOCYTE ESTERASE, URINE NEGATIVE (NEGATIVE); NITRITE,URINE NEGATIVE (NEGATIVE); OCCULT BLOOD,URINE SMALL (NEGATIVE); PROTEIN,URINE 30 mg/dL (NEGATIVE); UROBILINOGEN,URINE 0.2 (NORMAL) E.U./dL (NORMAL)
[2022-09-14 18:25] LABS: CLARITY,URINE CLEAR (CLEAR)
[2022-09-14 18:27] LABS: AMPHETAMINE SCREEN,URINE NEGATIVE (NEGATIVE); BACTERIA,URINE None Seen /HPF (None Seen); BARBITURATE SCREEN,UR NEGATIVE (NEGATIVE); BENZODIAZEPINES SCREEN, URINE NEGATIVE (NEGATIVE); CASTS, URINE 0-2 Hyaline Casts /LPF; COCAINE SCREEN URINE NEGATIVE (NEGATIVE); METHADONE SCREEN, URINE NEGATIVE (NEGATIVE); METHAMPHETAMINES SCREEN, URINE NEGATIVE (NEGATIVE); OPIATE SCREEN, URINE NEGATIVE (NEGATIVE); OXYCODONE SCREEN, URINE NEGATIVE (NEGATIVE); PROPOXYPHENE SCREEN, URINE NEGATIVE (NEGATIVE); RBC,URINE 0-5 /HPF (0-5); SQUAMOUS EPITHELIAL CELL,UR NONE SEEN (<= Few); THC CANNABINOID SCREEN, URINE NEGATIVE (NEGATIVE); TRICYCLIC ANTIDEPRESSANT,URINE NEGATIVE (NEGATIVE); WBC,URINE 0-3 /HPF (0-3)
[2022-09-14 19:50] VITALS: BP 110/84
== END 2022-09-14 19:57 | disposition home or self-care (01) ==
LOC: EDUNIT# → ED 14:17
DX: G93.41 Metabolic encephalopathy (principal); E16.2 Hypoglycemia, unspecified; T68.XXXA Hypothermia, initial encounter; W93.8XXA Exposure to other excessive cold of man-made origin, initial encounter; Z99.2 Dependence on renal dialysis; Z20.822 Contact with and (suspected) exposure to COVID-19
CPT/HCPCS: 36415; 71045; 80053; 80306; 80320; 81001; 83605; 83690; 83735; 85025; 86140; 87040; 87633; 93005; 96361; 96365; 99284; J3490; 81003; 87086

== ENCOUNTER 2022-10-17 13:53 | Emergency (ER) | payer OTHER ==
[2022-10-17 15:16] LABS: BASOPHILS % (AUTO) 0.3 %; EOSINOPHILS # (AUTO) 0.2 10^3/uL (0.0-0.7); EOSINOPHILS % (AUTO) 2.1 %; HCT - HEMATOCRIT 49.9 % (42.0-52.0); HGB - HEMOGLOBIN 16.2 g/dL (14.0-18.0); LYMPHOCYTES # (AUTO) 0.6 10^3/uL (1.5-3.5); LYMPHOCYTES % (AUTO) 6.9 %; MEAN CORPUSCULAR HEMOGLOBIN 29.8 pg (27.0-31.0); MEAN CORPUSCULAR HGB CONC 32.5 g/dL (32.0-36.0); MEAN CORPUSCULAR VOLUME 91.7 fL (80.0-94.0); MEAN PLATELET VOLUME 10.3 fL (7.4-11.4); MONOCYTES # (AUTO) 0.6 10^3/uL (0.0-1.0); MONOCYTES % (AUTO) 7.3 %; NEUTROPHILS # (AUTO) 6.6 10^3/uL (1.5-6.6); NEUTROPHILS % (AUTO) 83.1 %; PLT - PLATELET COUNT 293 10^3/uL (130-450); RED BLOOD COUNT 5.44 10^6/uL (4.70-6.10); RED CELL DISTRIBUTION WIDTH 13.7 % (12.0-15.0)
[2022-10-17 15:38] LABS: BILIRUBIN,TOTAL 0.9 mg/dL (0.2-1.0); CALCIUM 10.6 mg/dL (8.5-10.3); MAGNESIUM 2.1 mg/dL (1.7-2.8); TOTAL PROTEIN 9.9 g/dL (6.7-8.2)
[2022-10-17 15:40] LABS: CREATININE 8.4 mg/dL (0.6-1.2)
[2022-10-17] MEDS ORDERED: SODIUM CHLORIDE 0.9% 500 ML IV STA (16:55)
[2022-10-17] MEDS ORDERED: ONDANSETRON 4 MG/2 ML VIAL IVP STA (16:55)
[2022-10-17] MEDS ORDERED: ONDANSETRON ODT 4 MG TABLET TL STA (17:38)
[2022-10-17 18:05] VITALS: BP 140/100
[2022-10-17] MEDS ORDERED: ONDANSETRON ODT 4 MG Prepack 2 TL PRN (18:23)
--- NOTE | 2022-10-17 18:25 | ED Physician Documentation ---
PD HPI NVD - Stated complaint Stated Complaint: VOMITING/MALE GI - Chief complaint Chief Complaint: Abd Pain - History obtained from History obtained from: Patient - Additonal information Additional information: Patient is a 32-year-old male end-stage renal disease on dialysis presenting for evaluation of vomiting and diarrhea since yesterday evening. Patient is Sunday dialysis and went yesterday with a normal session. Afterwards he picked up [employer] sandwich. Shortly thereafter he developed vomiting which she reports initially was food and since then has become liquid. He also reports having several episodes of loose stools this morning. He has had some generalized abdominal cramping.He has been able to keep some water down since waiting in triage. Denies fever. No chest pain, shortness of breath. He does make a little bit of urine and denies any dysuria.Denies any known sick contacts. No recent antibiotic use.No recent travel. Review of Systems Constitutional: denies: Fever Cardiac: denies: Chest pain / pressure Respiratory: denies: Dyspnea GI: reports: Nausea, Vomiting, Diarrhea. 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 ) - Past Surgical History Past Surgical History: No - Present Medications Home Medications: Ambulatory Orders Medication Instructions Recorded Confirmed Chlorthalidone 12.5 mg PO DAILY 03/19/22 03/19/22 amLODIPine [Norvasc] 12.5 mg PO DAILY 03/19/22 03/19/22 carvediloL [Coreg] 12.5 mg PO BID 03/19/22 03/19/22 Ondansetron Odt [Zofran] 4 mg TL Q6H PRN #10 tablet 04/15/22 Ondansetron Odt [Zofran] 4 mg TL Q6H PRN #10 tablet 10/17/22 - Allergies Allergies/Adverse Reactions: Allergies Allergy/AdvReac Type Severity Reaction Status Date / Time No Known Drug Allergies Allergy Verified 09/14/22 14:44 - Social History Does the pt smoke?: No Smoking Status: Never smoker Does the pt drink ETOH?: Yes Does the pt have substance abuse?: No - Immunizations Immunizations are current?: No - POLST Patient has POLST: No PD ED PE NORMAL - General General: Alert and oriented X 3, No acute distress, Well developed/nourished - HEENT HEENT: Atraumatic - Neck Neck: Supple, no meningeal sign, Other (Tunneled catheter to right chest wall with no surrounding erythema or tenderness) - Cardiac Cardiac: RRR, No murmur - Respiratory Respiratory: No respiratory distress, Clear bilaterally - Abdomen Abdomen: Normal bowel sounds, Soft, Non tender, Non distended - Derm Derm: Warm and dry - Neuro Neuro: Normal speech Results - Vitals Vitals: Vital Signs - 24 hr 10/17/22 10/17/22 10/17/22 13:58 14:03 16:03 Temperature 36.3 C L 36.5 C Heart Rate 111 H 111 H 85 Respiratory 16 16 12 Rate Blood Pressure 134/110 H 134/110 H 129/93 H O2 Saturation 92 92 98 10/17/22 18:00 Temperature Heart Rate 87 Respiratory 16 Rate Blood Pressure 140/100 H O2 Saturation 98 Oxygen O2 Source Room air - Labs Labs: Laboratory Tests 10/17/22 10/17/22 15:12 15:12 WBC 8.0 RBC 5.44 Hgb 16.2 Hct 49.9 MCV 91.7 MCH 29.8 MCHC 32.5 RDW 13.7 Plt Count 293 MPV 10.3 Neut # (Auto) 6.6 Lymph # (Auto) 0.6 L [place] # (Auto) 0.6 Eos # (Auto) 0.2 Baso # (Auto) 0.0 Absolute Nucleated RBC 0.00 Nucleated RBC % 0.0 Sodium 140 Potassium 5.0 Chloride 98 L Carbon Dioxide 23 Anion Gap 19.0 H BUN 42 H Creatinine 8.4 H* Estimated GFR (MDRD) 9 L Glucose 104 H Calcium 10.6 H Magnesium 2.1 Total Bilirubin 0.9 AST 34 ALT 23 Alkaline Phosphatase 94 Total Protein 9.9 H Albumin 5.0 Globulin 4.9 H Albumin/Globulin Ratio 1.0 Lipase 51 PD Medical Decision Making - ED course Complexity details: reviewed results, re-evaluated patient, d/w patient ED course: Patient presenting for evaluation of nausea, vomiting and diarrhea since yesterday. He is a dialysis patient. CBC and chemistries were reviewed. His creatinine is elevated which is expected and appears to be similar to prior labs.We initially discussed plan for small fluid bolus as he has not had much to eat or drink today. However he was a difficult IV stick. I did offer to try and start an ultrasound-guided IV but patient prefers to try p.o. Zofran. He states that he sometimes gets this at dialysis. He did well after p.o. Zofran was able to tolerate liquids as well as small amount of pudding. His abdominal exam is benign. Patient is comfortable with plan for discharge with continued supportive care. He plans to go to dialysis tomorrow. He is not febrile. He was counseled on concerning symptoms to return for. He has had no vomiting or diarrhea here. Departure - Departure Disposition: 01 Home, Self Care Clinical Impression: Vomiting and diarrhea, ESRD (end stage renal disease) on dialysis Condition: Stable Instructions: ED Diet Vomiting Diarrhea Prescriptions: Ondansetron Odt [Zofran] 4 mg TL Q6H PRN #10 tablet PRN Reason: Nausea / Vomiting Comments: I have sent a prescription for antinausea medication called Zofran to [facility] in [place]. Your symptoms could be related to a viral infection or something that you ate. I would expect them to get better quickly over the course of the next day. Please continue to follow-up at dialysis as scheduled. If you develop any worsening symptoms please return to the ER. Discharge Date/Time: 10/17/22 18:38
== END 2022-10-17 18:38 | disposition home or self-care (01) ==
LOC: ED 13:53
DX: R11.10 Vomiting, unspecified (principal); R19.7 Diarrhea, unspecified; N18.6 End stage renal disease; Z99.2 Dependence on renal dialysis
CPT/HCPCS: 36415; 80053; 83690; 83735; 85025; 99284; Q0162

== ENCOUNTER 2022-12-17 22:55 | Emergency (ER) | payer OTHER ==
[2022-12-17 23:06] VITALS: BP 130/90
--- NOTE | 2022-12-17 23:08 | ED Physician Documentation ---
History of Present Illness - Stated complaint Stated Complaint: DRESSING CHANGED - Chief complaint Chief Complaint: General - History obtained from History obtained from: Patient - Additonal information Additional information: Patient is a 32-year-old male presenting for evaluation of a dressing change to his dialysis catheter. Patient states that he was out for a hike this evening and got sweaty and feels that he could use a new dressing. Patient states that he is been doing well today. He was hospitalized a week or so ago for C. difficile infection and continues to be on antibiotics. He denies any fevers, abnormal drainage from his catheter. He has been compliant with his dialysis. 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 ) - Past Surgical History Past Surgical History: No - Present Medications Home Medications: Ambulatory Orders Medication Instructions Recorded Confirmed Chlorthalidone 12.5 mg PO DAILY 03/19/22 03/19/22 amLODIPine [Norvasc] 12.5 mg PO DAILY 03/19/22 03/19/22 carvediloL [Coreg] 12.5 mg PO BID 03/19/22 03/19/22 Ondansetron Odt [Zofran] 4 mg TL Q6H PRN #10 tablet 04/15/22 Ondansetron Odt [Zofran] 4 mg TL Q6H PRN #10 tablet 10/17/22 - Allergies Allergies/Adverse Reactions: Allergies Allergy/AdvReac Type Severity Reaction Status Date / Time No Known Drug Allergies Allergy Verified 12/17/22 22:58 - Social History Does the pt smoke?: No Smoking Status: Never smoker Does the pt drink ETOH?: Yes Does the pt have substance abuse?: No - Immunizations Immunizations are current?: No - POLST Patient has POLST: No PD ED PE NORMAL - General General: Alert and oriented X 3, No acute distress, Well developed/nourished - HEENT HEENT: Atraumatic - Neck Neck: Supple, no meningeal sign - Cardiac Cardiac: RRR, Other (Dialysis catheter to right chest wall, no surrounding erythema or tenderness) - Respiratory Respiratory: No respiratory distress - Derm Derm: Warm and dry - Neuro Neuro: Normal speech Results - Vitals Vitals: Vital Signs - 24 hr 12/17/22 22:58 Temperature 36.5 C Heart Rate 100 Respiratory 16 Rate Blood Pressure 130/90 H O2 Saturation 97 Oxygen O2 Source Room air PD Medical Decision Making - ED course ED course: Patient presenting for Dressing change to his dialysis catheter. Site appears clean without signs of infection. Vital signs are stable. New dressing was placed. Patient is advised on continued site care as well as concerning symptoms to return for. Departure - Departure Disposition: 01 Home, Self Care Clinical Impression: Dressing change Condition: Stable Comments: Please continue to keep the dressing around your dialysis catheter clean and dry. Return to the emergency department if you develop any worsening symptoms such as abnormal drainage from the catheter, fever or with any concerning symptoms. Discharge Date/Time: 12/17/22 23:26
== END 2022-12-17 23:26 | disposition home or self-care (01) ==
LOC: ED 22:55
DX: Z48.00 Encounter for change or removal of nonsurgical wound dressing (principal); I12.0 Hypertensive chronic kidney disease with stage 5 chronic kidney disease or end stage renal disease; N18.6 End stage renal disease; Z99.2 Dependence on renal dialysis; Z79.899 Other long term (current) drug therapy
CPT/HCPCS: 99282